=== PATIENT | female | born 1975 | race American Indian/Alaskan Native ===

== ENCOUNTER 2017-06-11 16:38 | Emergency (ER) | payer MEDICAID, MEDICARE ==
[2017-06-11] MEDS ORDERED: Benzonatate 100 MG Cap PO ONE (16:39)
[2017-06-11] MEDS ORDERED: predniSONE 20 MG Tab PO ONE (16:39)
[2017-06-11] MEDS ORDERED: Albuterol/Ipratropium 3.0-0.5 MG/3 ML Neb Soln NEB ONE (18:52)
[2017-06-11] MEDS ORDERED: Albuterol 0.083% 2.5 MG/3 ML Neb Soln NEB ONE (20:35)
[2017-06-11] MEDS ORDERED: methylPREDNISolone Sodium Succinate 125 MG/2 ML SDV IVPUSH ONE (20:35)
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
[2017-06-11 21:07] VITALS: BP 152/83
[2017-06-11 21:29] LABS: CHLORIDE,CL 104 mmol/L (101-111); SODIUM,NA 138 mmol/L (135-145)
[2017-06-11] MEDS ORDERED: Benzonatate 100 MG Cap ONE (21:39)
[2017-06-11] MEDS ORDERED: predniSONE 20 MG Tab ONE (21:40)
== END 2017-06-11 21:45 | disposition home or self-care (01) ==
LOC: DL.ED 16:38
DX: J45.901 Unspecified asthma with (acute) exacerbation (principal); F17.210 Nicotine dependence, cigarettes, uncomplicated; Z98.890 Other specified postprocedural states; Z79.899 Other long term (current) drug therapy; Z88.6 Allergy status to analgesic agent; Z91.030 Bee allergy status
CPT/HCPCS: 36415; 71020; 80053; 83605; 85025; 96374; 99285; A9270; J2930; J7620; 99284

== ENCOUNTER 2017-11-24 13:21 | Day surgery (SDC) | payer MEDICARE ==
[2017-11-24] MEDS ORDERED: Sodium Chloride 0.9% 1,000 ML IV ONE (13:46)
[2017-11-24] MEDS ORDERED: Ondansetron 4 MG/2 ML SDV IV ONE ×4 (13:46→20:34)
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
[2017-11-24 14:34] LABS: ACETAMINOPHEN < 10; ANION GAP 11.3; CHLORIDE,CL 103 mmol/L (101-111); SODIUM,NA 135 mmol/L (135-145)
[2017-11-24] MEDS ORDERED: Iopamidol 612 MG/ML 100 ML Bottle IVPUSH ONE (14:44)
--- NOTE | 2017-11-24 15:34 | CT ---
Clinical history: 42-year-old 254 pound female smoker with mid epigastric pain, fever, chills and mil dly elevated WBC (11,500). Scan technique: Volume acquisition of data from the abdomen and pelvis obtained without oral contrast but during/after intravenous administration 100 cc nonionic Isovue (3 cc/s via injector) while patie nt was lying supine on the Siemens multi slice scanner [facility]. All data archived in the PACS system for storage, reformatting axial/sagittal/coronal planes and s tudy. Interpretation: Abnormal. 1. *Diseased gallbladder i.e large dependent noncalcified intraluminal "stones" filling the lower harper f of the distended gallbladder. 2. Liver normal size and anatomic configuration without sign of discrete intrahepatic mass lesion or abnormal dilatation of the intra/extrahepatic biliary ducts. Pancreas unremarkable. Normal stomach an d spleen. 3. Normal reniform size, axis and configuration. No sign of renal cortical scarring, cortical mass le hilda, nephrolithiasis or obstructive uropathy. Urinary bladder unremarkable. Normal uterus left of mi dline. Solitary large 2 cm cyst right ovary. 4. No other pelvic or abdominal mass lesion and no sign of mesenteric or retroperitoneal lymphadenopa thy. No inflammatory "dirty" peritoneal fat, sign of mechanical bowel obstruction, ascites or free in traperitoneal air. No sign of diverticulitis or appendicitis. 5. Normal heart. Lung bases clear. Normal caliber abdominal aorta.
[2017-11-24] MEDS ORDERED: Glycopyrrolate 0.2 MG/ML 2 ML SDV IV ONE (16:35)
[2017-11-24] MEDS ORDERED: Rocuronium 50 MG/5 ML Vial IV ONE (16:35)
[2017-11-24] MEDS ORDERED: Midazolam 1 MG/ML 2 ML SDV IV ONE (16:35)
[2017-11-24] MEDS ORDERED: Lactated Ringers 1,000 ML IV ONE ×2 (16:35→16:41)
[2017-11-24] MEDS ORDERED: Dexamethasone 4 MG/ML SDV IV ONE (16:35)
[2017-11-24] MEDS ORDERED: Ketorolac 30 MG/ML SDV IVPUSH ONE (16:35)
[2017-11-24] MEDS ORDERED: Bupivacaine 0.5% 30 ML SDV INJECT ONE (16:35)
[2017-11-24] MEDS ORDERED: Succinylcholine 200 MG/10 ML MDV IV ONE (16:35)
[2017-11-24] MEDS ORDERED: Neostigmine Methylsulfate 10 MG/10 ML MDV IV ONE (16:35)
[2017-11-24] MEDS ORDERED: Albuterol 6.7 GM Inhaler INH ONE ×2 (16:35→18:18)
[2017-11-24] MEDS ORDERED: Propofol 200 MG/20 ML SDV IV ONE (16:35)
[2017-11-24] MEDS ORDERED: fentaNYL 100 MCG/2 ML SDV IV ONE (16:35)
[2017-11-24] MEDS ORDERED: ceFAZolin 2 GM in Premix Bag 1 BAG IV ONE (16:41)
--- NOTE | 2017-11-24 17:21 | HP ---
INTRODUCTION: This 42-year-old female presents to the emergency room with significant right upper quadrant abdominal pain and nausea and vomiting. CT scan shows a grossly dilated gallbladder with dependent stones and sludge in the outlet of the gallbladder consistent with a partial blockage. No other abnormalities on CT scan were noted. This patient has been sick all day long and finally after multiple episodes of vomiting, called the ambulance to bring her in. White count is elevated slightly to 11,000, otherwise, electrolyte panel is normal. PAST MEDICAL HISTORY: ALLERGIES: The patient has no allergies. CURRENT MEDICATIONS ARE: Inhalers as needed. FAMILY HISTORY AND SOCIAL HISTORY: The patient is single. She works at the [employer] at [place]. She does not have any children. She said she is trying to quit smoking and only smokes occasionally. She claims she does not use alcohol or other street drugs. REVIEW OF SYSTEMS: Only positive for asthma. PHYSICAL EXAMINATION: HEENT is normal. She has multiple facial scars. NECK: Normal. CHEST: Lungs are clear bilaterally. HEART: Normal sinus rhythm. ABDOMEN: Mildly obese. No evidence of hernias. She is tender in the right upper quadrant, has some guarding to palpation. EXTREMITIES: Normal with no edema. NEUROLOGIC: Intact. LABORATORY: As above with elevated white blood cell count and a CT consistent with gallbladder disease. PLAN: I discussed the risks, benefits, and expected outcomes of a laparoscopic cholecystectomy with this patient. We will proceed with this today at [place]. Would expect an overnight observation with home tomorrow. [facility] /[id number]
[2017-11-24] MEDS ORDERED: Bupivacaine 0.5%/EPINEPHrine 1:200,000 10 ML SDV ONE (18:08)
[2017-11-24] MEDS ORDERED: Bupivacaine 0.5%/EPINEPHrine 1:200,000 10 ML SDV INJECT ONE (18:15)
[2017-11-24] MEDS ORDERED: Sodium Chloride 0.9% 10 ML Syringe FLUSH PRN (18:37)
[2017-11-24] MEDS: Morphine 2 MG/ML Syringe IVPUSH PRN ×2 (20:05→22:56)
[2017-11-24] MEDS ORDERED: Ondansetron 4 MG/2 ML SDV ONE (20:43)
--- NOTE | 2017-11-25 01:19 | OR ---
DATE: 11/24/2017 PREOPERATIVE DIAGNOSIS: Acute cholecystitis. POSTOPERATIVE DIAGNOSES: Acute cholecystitis, hydrops of the gallbladder. PROCEDURE: Laparoscopic cholecystectomy. ANESTHESIA: General. ESTIMATED BLOOD LOSS: Minimum. SPECIMEN: Gallbladder and stones. INDICATION FOR PROCEDURE: This 42-year-old female has significant right upper quadrant abdominal pain and a CT scan that shows largely distended gallbladder with probable impaction of a large stone in the outlet of the gallbladder. She has elevated white blood cell count of 11,000. There is pain to deep palpation in the right upper quadrant. OPERATIVE FINDINGS: Distended gallbladder hydrops. No other abnormalities were noted. PROCEDURE: After adequate preparation, trocars were placed in a standard fashion under direct vision. The abdomen was insufflated. The gallbladder was identified. She had no intraabdominal adhesions. The liver appeared to be normal. The gallbladder was too tense to grasp with a grasper and so an aspiration needle was used and 100 mL of white bile was taken from the gallbladder. This allowed the gallbladder to be elevated up over the liver. She did indeed have a large stone impacting Meenakshi's pouch that blocked the cystic duct. The cystic triangle structures were dissected free, triply clipped and divided. The gallbladder was then taken off the liver bed using blunt, sharp, and Bovie dissection. No abnormalities were noted. Hemostasis was controlled with cautery. The right upper quadrant was irrigated with saline and suctioned clear. The gallbladder was placed within a retrieval bag and brought out through the epigastric trocar site by having to dilate the fascia. This was then reclosed using two [id number] 0 Vicryl sutures. The skin was closed with Monocryl. The patient was taken to recovery room in stable condition. My plan is to observe her overnight and discharge in the morning. [facility] /[id number]
[2017-11-25] MEDS: Morphine 2 MG/ML Syringe IVPUSH PRN (03:07)
[2017-11-25] MEDS: Ondansetron 4 MG/2 ML SDV IV SCH ×2 (03:07→09:09)
[2017-11-25] MEDS: Acetaminophen/oxyCODONE 325-5 MG Tab PO PRN ×2 (06:22→10:10)
--- NOTE | 2017-11-25 07:30 | PCM.SN ---
- Free Text/Narrative Note: POD #1 from laparoscopic cholecytectomy. Somewhat sleepy. VSS Tmax 100.1. Wounds look good, no brusiing. Abdomen soft, lungs clear. Still some nausea. Stable to discharge today. Can FU with PCP at [facility] [place] [facility] needed. Should be off work for 1 week and then can return without restriction. Can resume regular diet and activity. Percocet (20) given as needed for pain.
[2017-11-25 13:27] VITALS: BP 101/61
== END 2017-11-25 11:00 | disposition home or self-care (01) ==
LOC: DL.SDS 13:21 → UNDOADMOB 19:20 → DL.MS 19:20 → UNDODISOB 11-25 11:00 → DL.SDS 11-25 11:00
PROVIDERS: ATTEND Surgery
DX: K80.10 Calculus of gallbladder with chronic cholecystitis without obstruction (principal); J45.909 Unspecified asthma, uncomplicated; F32.9 Major depressive disorder, single episode, unspecified; Z88.8 Allergy status to other drugs, medicaments and biological substances; Z91.030 Bee allergy status; Z79.899 Other long term (current) drug therapy; F17.210 Nicotine dependence, cigarettes, uncomplicated
CPT/HCPCS: 00790; 36415; 47562; 74177; 80053; 80305; 81001; 81025; 82150; 83690; 85025; 87804; 96361; 96374; 99285; A9270; G0480; J0330; J0690; J1100; J1885; J2250; J2270; J2405; J2704; J2710; J3010; J7030; J7050; J7120; Q9967; 88304; 99203; J3490

== ENCOUNTER 2018-03-12 15:33 | Emergency (ER) | payer MEDICARE, OTHER ==
[2018-03-12 15:39] VITALS: BP 143/75
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
== END 2018-03-12 16:18 ==
LOC: DL.ED 15:33
DX: F19.10 Other psychoactive substance abuse, uncomplicated (principal); E66.9 Obesity, unspecified; Z88.8 Allergy status to other drugs, medicaments and biological substances; Z91.030 Bee allergy status; Z79.899 Other long term (current) drug therapy
CPT/HCPCS: 36415; 80305; 99284; G0480; 99283

== ENCOUNTER 2018-03-23 22:56 | Emergency (ER) | payer MEDICARE, OTHER ==
[2018-03-23 23:02] VITALS: BP 160/72
[2018-03-23] MEDS ORDERED: Clindamycin HCl 150 MG Cap PO ONE (23:11)
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
== END 2018-03-23 23:26 | disposition home or self-care (01) ==
LOC: DL.ED 22:56
DX: S00.06XA Insect bite (nonvenomous) of scalp, initial encounter (principal); F17.210 Nicotine dependence, cigarettes, uncomplicated; J45.909 Unspecified asthma, uncomplicated; Z88.6 Allergy status to analgesic agent; Z91.030 Bee allergy status; W57.XXXA Bitten or stung by nonvenomous insect and other nonvenomous arthropods, initial encounter
CPT/HCPCS: 99282; A9270; 99283

== ENCOUNTER 2018-04-25 14:01 | Emergency (ER) | payer MEDICARE, OTHER ==
[2018-04-25 14:13] VITALS: BP 175/75
== END 2018-04-25 15:43 | disposition left against medical advice (07) ==
LOC: DL.ED 14:01
DX: Z53.21 Procedure and treatment not carried out due to patient leaving prior to being seen by health care provider (principal)
CPT/HCPCS: 99284

== ENCOUNTER 2018-05-11 16:06 | Inpatient (IN) | payer MEDICARE, OTHER ==
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
[2018-05-11] MEDS ORDERED: Vancomycin 1.75 GM in Sodium Chloride 0.9% 500 ML IV ONE (17:51)
[2018-05-11 18:04] LABS: ANION GAP 15.1; CHLORIDE,CL 103 mmol/L (101-111); SODIUM,NA 137 mmol/L (135-145)
[2018-05-11] MEDS ORDERED: Iopamidol 612 MG/ML 100 ML Bottle IVPUSH ONE (18:15)
[2018-05-11] MEDS ORDERED: Ondansetron 4 MG/2 ML SDV IV ONE (19:19)
[2018-05-11] MEDS ORDERED: Morphine 2 MG/ML Syringe IVPUSH ONE (19:19)
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
[2018-05-11] MEDS ORDERED: Docusate Sodium 100 MG Cap PO PRN (20:46)
[2018-05-11] MEDS ORDERED: Albuterol/Ipratropium 3.0-0.5 MG/3 ML Neb Soln INH PRN (20:52)
[2018-05-11] MEDS: Acetaminophen 325 MG Tab PO PRN (21:30)
[2018-05-11] MEDS: Piperacillin/Tazobactam 3.375 GM in Sodium Chloride 0.9% 100 ML IV SCH (21:38)
[2018-05-12] MEDS: Piperacillin/Tazobactam 3.375 GM in Sodium Chloride 0.9% 100 ML IV SCH ×4 (03:58→21:13)
[2018-05-12] MEDS: Pantoprazole 40 MG Tab.CR PO SCH (06:05)
[2018-05-12 07:01] LABS: CHLORIDE,CL 107 mmol/L (101-111); SODIUM,NA 139 mmol/L (135-145)
[2018-05-12] MEDS: Mometasone Furoate Powder 220 MCG/Puff 14 Dose Inhaler INH SCH (08:57)
[2018-05-12] MEDS: Enoxaparin 40 MG/0.4 ML Syringe SUBCUT SCH (08:59)
[2018-05-12] MEDS ORDERED: Albuterol 6.7 GM Inhaler INH SCH (09:00)
[2018-05-12] MEDS: Montelukast 10 MG Tab PO SCH (09:01)
[2018-05-12] MEDS: Sertraline 50 MG Tab PO SCH (09:01)
[2018-05-12] MEDS: Acetaminophen 325 MG Tab PO PRN ×2 (09:14→21:25)
[2018-05-12] MEDS ORDERED: Potassium Chloride 10 MEQ Tab.ER PO ONE (11:12)
--- NOTE | 2018-05-12 12:03 | PCM.PN ---
- General Info Date of Service: 05/12/18 Admission Dx/Problem (Free Text): Left hand ( Wrist and lower arm), pain. swelling and warmth with redness ( Cellulitis of Left hand) Subjective Update: she is feeling little better today, still has pain in her left arm, no over night fever or chill, appetite is good, no shortness of breath or cheat pain Functional Status: Reports: Pain Controlled, Tolerating Diet, Ambulating, Urinating - Review of Systems General: Reports: Appetite (good). Denies: Fever, Malaise, Chills HEENT: Denies: Ear Pain, Eye Pain, Headaches, Sinus Congestion, Sore Throat Pulmonary: Denies: Shortness of Breath, Cough, Wheezing Cardiovascular: Denies: Chest Pain, Dyspnea on Exertion, Edema, Lightheadedness Gastrointestinal: Denies: Abdominal Pain, Constipation, Nausea, Vomiting Genitourinary: Denies: Dysuria, Burning, Urgency, Flank Pain Musculoskeletal: Reports: Arm Pain (left), Hand Pain (left), Joint Swelling ( left wrist). Denies: Neck Pain, Shoulder Pain, Leg Pain, Foot Pain Skin: Denies: Cyanosis, Diaphoresis, Bruising, Pruritis, Rash Neurological: Denies: Confusion, Tingling, Tremors Psychiatric: Denies: Confusion, Anxiety - Patient Data Vitals - Most Recent: Last Vital Signs Temp 36.9 C 05/12/18 08:32 Pulse 56 L 05/12/18 08:32 Resp 20 05/12/18 08:32 BP 139/77 05/12/18 08:32 Pulse Ox 99 05/12/18 08:32 Weight - Most Recent: 102.058 kg I&O - Last 24 Hours: Intake & Output 05/11/18 05/12/18 05/12/18 22:59 06:59 14:59 Intake Total 1450 750 Output Total 1000 Balance 450 750 Lab Results Last 24 Hours: Laboratory Results - last 24 hr 05/11/18 05/11/18 05/11/18 Range/Units 17:15 17:15 17:37 WBC 16.6 H (5.0-10.0) 10^3/uL RBC 4.91 (4.2-5.4) 10^6/uL Hgb 10.5 L D (12.0-16.0) g/dL Hct 33.8 L (37.0-47.0) % MCV 68.8 L D (80-100) fL MCH 21.4 L (27.0-34.0) pg MCHC 31.1 L (33.0-35.0) g/dL Plt Count 433 (150-450) 10^3/uL Neut % (Auto) 75.9 H (42.2-75.2) % Lymph % (Auto) 13.2 L (20.5-50.1) % [place] % (Auto) 7.9 (2-8) % Eos % (Auto) 2.8 (1.0-3.0) % Baso % (Auto) 0.2 (0.0-1.0) % Sodium (135-145) mmol/L Potassium (3.6-5.0) mmol/L Chloride (101-111) mmol/L Carbon Dioxide (21.0-31.0) mmol/L Anion Gap BUN (7-18) mg/dL Creatinine (0.6-1.3) mg/dL Est Cr Clr Drug Dosing mL/min Estimated GFR (MDRD) BUN/Creatinine Ratio Glucose (74-105) mg/dL Lactic Acid (0.5-2.2) mmol/L Calcium (8.4-10.2) mg/dl Total Bilirubin (0.2-1.0) mg/dL AST (10-42) IU/L ALT (10-60) IU/L Alkaline Phosphatase (42-121) IU/L Total Protein (6.7-8.2) g/dl Albumin (3.2-5.5) g/dl Globulin Albumin/Globulin Ratio Urine Color Yellow (YELLOW) Urine Appearance Slightly cloudy (CLEAR) Urine pH 6.0 (5.0-9.0) Ur Specific [place] 1.015 (1.005-1.030) Urine Protein Negative (NEGATIVE) Urine Glucose (UA) Negative (NEGATIVE) Urine Ketones Trace H (NEGATIVE) Urine Occult Blood Moderate H (NEGATIVE) Urine Nitrite Negative (NEGATIVE) Urine Bilirubin Negative (NEGATIVE) Urine Urobilinogen 0.2 (0.2-1.0) mg/dL Ur Leukocyte Esterase Negative (NEGATIVE) Urine RBC 0-5 /HPF Urine WBC 0-5 (0-5/HPF) /HPF Ur Epithelial Cells Moderate H /HPF Urine Bacteria Moderate H (0-FEW/HPF) /HPF Urinalysis Comment Urine Opiates Screen Negative (NEGATIVE) Ur Oxycodone Screen Negative (NEGATIVE) Urine Methadone Screen Negative (NEGATIVE) Ur Barbiturates Screen Negative (NEGATIVE) U Tricyclic Antidepress Negative (NEGATIVE) Ur Phencyclidine Scrn Negative (NEGATIVE) Ur Amphetamine Screen Negative (NEGATIVE) U Methamphetamines Scrn Positive H (NEGATIVE) Urine MDMA Screen Negative (NEGATIVE) U Benzodiazepines Scrn Negative (NEGATIVE) Urine Cocaine Screen Negative (NEGATIVE) U Marijuana (THC) Screen Positive H (NEGATIVE) 05/11/18 05/11/18 05/12/18 Range/Units 17:37 17:37 06:23 WBC 11.9 H (5.0-10.0) 10^3/uL RBC 4.74 (4.2-5.4) 10^6/uL Hgb 9.9 L (12.0-16.0) g/dL Hct 32.9 L (37.0-47.0) % MCV 69.4 L (80-100) fL MCH 20.9 L (27.0-34.0) pg MCHC 30.1 L (33.0-35.0) g/dL Plt Count 400 (150-450) 10^3/uL Neut % (Auto) 61.7 (42.2-75.2) % Lymph % (Auto) 21.1 (20.5-50.1) % [place] % (Auto) 9.2 H (2-8) % Eos % (Auto) 7.7 H (1.0-3.0) % Baso % (Auto) 0.3 (0.0-1.0) % Sodium 137 (135-145) mmol/L Potassium 3.1 L (3.6-5.0) mmol/L Chloride 103 (101-111) mmol/L Carbon Dioxide 22.0 (21.0-31.0) mmol/L Anion Gap 15.1 BUN 8 (7-18) mg/dL Creatinine 0.1 L (0.6-1.3) mg/dL Est Cr Clr Drug Dosing 612.43 mL/min Estimated GFR (MDRD) > 60 BUN/Creatinine Ratio 80.00 Glucose 81 (74-105) mg/dL Lactic Acid 0.7 (0.5-2.2) mmol/L Calcium 8.9 (8.4-10.2) mg/dl Total Bilirubin 0.5 (0.2-1.0) mg/dL AST 19 (10-42) IU/L ALT 18 (10-60) IU/L Alkaline Phosphatase 89 (42-121) IU/L Total Protein 7.6 (6.7-8.2) g/dl Albumin 4.0 (3.2-5.5) g/dl Globulin 3.6 Albumin/Globulin Ratio 1.11 Urine Color (YELLOW) Urine Appearance (CLEAR) Urine pH (5.0-9.0) Ur Specific [place] (1.005-1.030) Urine Protein (NEGATIVE) Urine Glucose (UA) (NEGATIVE) Urine Ketones (NEGATIVE) Urine Occult Blood (NEGATIVE) Urine Nitrite (NEGATIVE) Urine Bilirubin (NEGATIVE) Urine Urobilinogen (0.2-1.0) mg/dL Ur Leukocyte Esterase (NEGATIVE) Urine RBC /HPF Urine WBC (0-5/HPF) /HPF Ur Epithelial Cells /HPF Urine Bacteria (0-FEW/HPF) /HPF Urinalysis Comment Urine Opiates Screen (NEGATIVE) Ur Oxycodone Screen (NEGATIVE) Urine Methadone Screen (NEGATIVE) Ur Barbiturates Screen (NEGATIVE) U Tricyclic Antidepress (NEGATIVE) Ur Phencyclidine Scrn (NEGATIVE) Ur Amphetamine Screen (NEGATIVE) U Methamphetamines Scrn (NEGATIVE) Urine MDMA Screen (NEGATIVE) U Benzodiazepines Scrn (NEGATIVE) Urine Cocaine Screen (NEGATIVE) U Marijuana (THC) Screen (NEGATIVE) 05/12/18 Range/Units 06:23 WBC (5.0-10.0) 10^3/uL RBC (4.2-5.4) 10^6/uL Hgb (12.0-16.0) g/dL Hct (37.0-47.0) % MCV (80-100) fL MCH (27.0-34.0) pg MCHC (33.0-35.0) g/dL Plt Count (150-450) 10^3/uL Neut % (Auto) (42.2-75.2) % Lymph % (Auto) (20.5-50.1) % [place] % (Auto) (2-8) % Eos % (Auto) (1.0-3.0) % Baso % (Auto) (0.0-1.0) % Sodium 139 (135-145) mmol/L Potassium 3.0 L (3.6-5.0) mmol/L Chloride 107 (101-111) mmol/L Carbon Dioxide 24.0 (21.0-31.0) mmol/L Anion Gap 11.0 BUN 7 (7-18) mg/dL Creatinine 0.5 L (0.6-1.3) mg/dL Est Cr Clr Drug Dosing 122.49 mL/min Estimated GFR (MDRD) > 60 BUN/Creatinine Ratio Glucose 103 (74-105) mg/dL Lactic Acid (0.5-2.2) mmol/L Calcium 8.3 L (8.4-10.2) mg/dl Total Bilirubin (0.2-1.0) mg/dL AST (10-42) IU/L ALT (10-60) IU/L Alkaline Phosphatase (42-121) IU/L Total Protein (6.7-8.2) g/dl Albumin (3.2-5.5) g/dl Globulin Albumin/Globulin Ratio Urine Color (YELLOW) Urine Appearance (CLEAR) Urine pH (5.0-9.0) Ur Specific [place] (1.005-1.030) Urine Protein (NEGATIVE) Urine Glucose (UA) (NEGATIVE) Urine Ketones (NEGATIVE) Urine Occult Blood (NEGATIVE) Urine Nitrite (NEGATIVE) Urine Bilirubin (NEGATIVE) Urine Urobilinogen (0.2-1.0) mg/dL Ur Leukocyte Esterase (NEGATIVE) Urine RBC /HPF Urine WBC (0-5/HPF) /HPF Ur Epithelial Cells /HPF Urine Bacteria (0-FEW/HPF) /HPF Urinalysis Comment Urine Opiates Screen (NEGATIVE) Ur Oxycodone Screen (NEGATIVE) Urine Methadone Screen (NEGATIVE) Ur Barbiturates Screen (NEGATIVE) U Tricyclic Antidepress (NEGATIVE) Ur Phencyclidine Scrn (NEGATIVE) Ur Amphetamine Screen (NEGATIVE) U Methamphetamines Scrn (NEGATIVE) Urine MDMA Screen (NEGATIVE) U Benzodiazepines Scrn (NEGATIVE) Urine Cocaine Screen (NEGATIVE) U Marijuana (THC) Screen (NEGATIVE) Med Orders - Current: Current Medications Acetaminophen (Tylenol) 650 mg PO Q4H PRN PRN Reason: Pain (mild 1-3 )/fever Last Admin: 05/12/18 09:14 Dose: 650 mg Albuterol (Proventil Hfa) 0 gm INH DAILY [facility] Last Admin: 05/12/18 09:05 Dose: Not Given Albuterol/Ipratropium (Duoneb 3.0-0.5 Mg/3 Ml) 3 ml INH Q4HR PRN PRN Reason: Dyspnea Docusate Sodium (Colace) 100 mg PO DAILY PRN PRN Reason: Constipation Enoxaparin Sodium (Lovenox) 40 mg SUBCUT DAILY [facility] Last Admin: 05/12/18 08:59 Dose: 40 mg Piperacillin Sod/Tazobactam (Sod 3.375 gm/ Sodium Chloride) 100 mls @ 200 mls/ hr IV Q6H [facility] Last Infusion: 05/12/18 10:35 Dose: Infused Vancomycin HCl 1 gm/ Sodium (Chloride) 250 mls @ 166.667 mls/hr IV Q8H [facility] Last Admin: 05/12/18 10:29 Dose: 166.667 mls/hr Mometasone Furoate (Asmanex 220 Mcg) 1 puff INH DAILY [facility] Last Admin: 05/12/18 08:57 Dose: 1 inhalation Montelukast Sodium (Singulair) 10 mg PO DAILY [facility] Last Admin: 05/12/18 09:01 Dose: 10 mg Pantoprazole Sodium (Protonix) 40 mg PO ACBREAKFAST [facility] Last Admin: 05/12/18 06:05 Dose: Not Given Sertraline HCl (Zoloft) 100 mg PO DAILY [facility] Last Admin: 05/12/18 09:01 Dose: 100 mg Vancomycin HCl (Pharmacy To Dose - Vancomycin) 1 dose .XX ASDIRECTED [facility] Discontinued Medications Vancomycin HCl 1.75 gm/ Sodium (Chloride) 500 mls @ 334 mls/hr IV ONETIME ONE Stop: 05/11/18 19:20 Last Admin: 05/11/18 18:15 Dose: 334 mls/hr Iopamidol (Isovue-300 (61%)) 100 ml IVPUSH ONETIME ONE Stop: 05/11/18 18:16 Last Admin: 05/11/18 18:23 Dose: 100 ml Morphine Sulfate (Morphine) 2 mg IVPUSH ONETIME ONE Stop: 05/11/18 19:20 Last Admin: 05/11/18 19:33 Dose: 2 mg Ondansetron HCl (Zofran) 4 mg IV ONETIME ONE Stop: 08/31/18 19:20 Last Admin: 05/11/18 19:31 Dose: 4 mg Potassium Chloride (Klor-Con 10) 40 meq PO ONETIME ONE Stop: 05/12/18 11:13 - Exam Quality Assessment: DVT Prophylaxis. No: Supplemental Oxygen, Urine Catheter General: Alert, Oriented, Cooperative, No Acute Distress HEENT: Pupils Equal, Pupils Reactive, Mucous Membr. Moist/[place] Neck: Supple, No JVD, No Thyromegaly Lungs: Clear to Auscultation, Normal Respiratory Effort. No: Crackles, Wheezing Cardiovascular: Regular Rate, Regular Rhythm, No Murmurs GI/Abdominal Exam: Normal Bowel Sounds, Soft, Non-Tender. No: Guarding, Rebound (Female) Exam: Deferred Back Exam: Normal Inspection, Full Range of Motion Extremities: Normal Inspection, Normal Range of Motion, No Pedal Edema Skin: Warm, Dry, Intact Neurological: No New Focal Deficit Psy/Mental Status: Alert, Normal Affect, Normal Mood - Problem List & Annotations (1) Asthma SNOMED Code(s): 578493434 Code(s): J45.909 - UNSPECIFIED ASTHMA, UNCOMPLICATED Status: Acute Current Visit: Yes (2) Cellulitis of hand, left SNOMED Code(s): 69082950 Code(s): L03.114 - CELLULITIS OF LEFT UPPER LIMB Status: Acute Current Visit: No - Problem List Review Problem List Initiated/Reviewed/Updated: Yes - My Orders Last 24 Hours: My Active Orders 05/11/18 20:46 Patient Status [ADT] Routine Ambulate [RC] ASDIRECTED Up With Assistance [RC] ASDIRECTED Up to Chair [RC] ASDIRECTED Vital Signs [RC] 04,08,12,16,20,00 Acetaminophen [Tylenol] 650 mg PO Q4H PRN Docusate Sodium [Colace] 100 mg PO DAILY PRN DVT/VTE Prophylaxis Reflex [OM.PC] Routine Resuscitation Status Routine 05/11/18 20:48 Oxygen Therapy [RC] PRN Pulse Oximetry [RC] PRN 05/11/18 20:49 Antiembolic Devices [RC] 08,20 VTE/DVT Education [RC] PER UNIT ROUTINE Antiembolic Hose [OM.PC] Per Unit Routine 05/11/18 20:52 Albuterol/Ipratropium [DuoNeb 3.0-0.5 MG/3 ML] 3 ml INH Q4HR PRN 05/11/18 21:00 Piperacillin/Tazobactam [Zosyn] 3.375 gm Sodium Chloride 0.9% [Normal Saline] 100 ml IV Q6H Vancomycin Pharmacy to Dose [Pharmacy to Dose - Vancomycin] 1 dose .XX ASDIRECTED 05/11/18 Dinner Regular Diet [DIET] 05/12/18 02:00 Vancomycin 1 gm Sodium Chloride 0.9% [Normal Saline] 250 ml IV Q8H 05/12/18 06:00 Pantoprazole [ProTONIX] 40 mg PO ACBREAKFAST 05/12/18 09:00 Albuterol [Proventil HFA] 0 gm INH DAILY Enoxaparin [Lovenox] 40 mg SUBCUT DAILY Mometasone Furoate [Asmanex 220 MCG] 1 puff INH DAILY Montelukast [Singulair] 10 mg PO DAILY Sertraline [Zoloft] 100 mg PO DAILY - Plan Plan:: This is a 42 y/O Moderately obese Female admitted with Left upper arm Cellulitis Impression and Plan: 1. Left Upper extremity Cellulitis: - The pt had Injected Methamphetamine into her left hand and now came with pain and swelling with erythema - B/C X 2 drawn ( No growth yest) -will continue IV Zosyn and Vancomycin -Pharmacy to check Vancomycin level and dose accordingly --Continue Tylenol as needed for pain and low grade Fever -will give Tramadol PRN for breakthrough pain 2. History of Asthma: Diagnosed about 6 years ago and will continue home medication ( albuterol and Duonebs PRN) 3. Hypokalemia: Potassium is low and will give potassium chloride 40 meq X 1 dose , will recheck potassium in AM 4. DVT prophlexis: Enoxapain 5. GI prophylaxis: Protonix 5. Code Status: Full code
[2018-05-12] MEDS: traMADol 50 MG Tab PO PRN (12:47)
[2018-05-12] MEDS ORDERED: Albuterol 6.7 GM Inhaler INH PRN (13:34)
[2018-05-13] MEDS: Piperacillin/Tazobactam 3.375 GM in Sodium Chloride 0.9% 100 ML IV SCH ×4 (03:49→21:41)
[2018-05-13] MEDS: Pantoprazole 40 MG Tab.CR PO SCH (06:01)
[2018-05-13] MEDS: Enoxaparin 40 MG/0.4 ML Syringe SUBCUT SCH (09:00)
[2018-05-13] MEDS ORDERED: Potassium Chloride 10 MEQ Tab.ER PO ONE (09:14)
[2018-05-13] MEDS: Sertraline 50 MG Tab PO SCH (09:57)
[2018-05-13] MEDS: Montelukast 10 MG Tab PO SCH (09:57)
[2018-05-13] MEDS: Mometasone Furoate Powder 220 MCG/Puff 14 Dose Inhaler INH SCH (10:02)
[2018-05-13] MEDS: Acetaminophen 325 MG Tab PO PRN ×2 (10:03→20:04)
[2018-05-13] MEDS: traMADol 50 MG Tab PO PRN ×2 (10:04→22:13)
--- NOTE | 2018-05-13 10:14 | PCM.PN ---
- General Info Date of Service: 05/13/18 Admission Dx/Problem (Free Text): Admitted with: Left hand ( Wrist and lower arm), pain. swelling and warmth with redness ( Cellulitis of Left hand) Subjective Update: she is feeling little better today, still has pain in her left arm, no over night fever or chill, appetite is good, no shortness of breath or chest pain, slept well, swelling of the hand is improving Functional Status: Reports: Pain Controlled, Tolerating Diet, Ambulating, Urinating - Review of Systems General: Reports: Appetite (Good). Denies: Fever, Weakness, Chills HEENT: Denies: Eye Pain, Headaches, Sinus Congestion, Sore Throat Pulmonary: Denies: Shortness of Breath, Pleuritic Chest Pain, Cough, Sputum, Wheezing Cardiovascular: Denies: Chest Pain, Dyspnea on Exertion, Lightheadedness Gastrointestinal: Denies: Abdominal Pain, Diarrhea, Difficulty Swallowing, Nausea, Vomiting Genitourinary: Denies: Dysuria, Burning, Urgency, Flank Pain Musculoskeletal: Reports: Hand Pain (left), Other (Left wrist and lower arm pain with swelling). Denies: Neck Pain, Shoulder Pain Skin: Denies: Jaundice, Bruising, Pruritis, Rash Neurological: Denies: Confusion, Tingling, Tremors Psychiatric: Denies: Confusion, Anxiety - Patient Data Vitals - Most Recent: Last Vital Signs Temp 37.1 C 05/13/18 08:00 Pulse 62 05/13/18 08:00 Resp 18 05/13/18 08:00 BP 126/62 05/13/18 08:00 Pulse Ox 99 05/13/18 08:00 Weight - Most Recent: 102.058 kg I&O - Last 24 Hours: Intake & Output 05/12/18 05/13/18 05/13/18 22:59 06:59 14:59 Intake Total 940 850 Balance 940 850 Lab Results Last 24 Hours: Laboratory Results - last 24 hr 05/13/18 Range/Units 06:36 Potassium 3.5 L (3.6-5.0) mmol/L Jed Results Last 24 Hours: Microbiology 05/11/18 17:38 Aerobic Blood Culture - Preliminary Blood - Venous - Lab Draw Anaerobic Blood Culture - Preliminary NO GROWTH AFTER 1 DAY 05/11/18 17:37 Aerobic Blood Culture - Preliminary Blood - Venous NO GROWTH AFTER 1 DAY Anaerobic Blood Culture - Preliminary NO GROWTH AFTER 1 DAY Med Orders - Current: Current Medications Acetaminophen (Tylenol) 650 mg PO Q4H PRN PRN Reason: Pain (mild 1-3 )/fever Last Admin: 05/12/18 21:25 Dose: 650 mg Albuterol (Proventil Hfa) 0 gm INH DAILY PRN PRN Reason: Shortness of Breath Albuterol/Ipratropium (Duoneb 3.0-0.5 Mg/3 Ml) 3 ml INH Q4HR PRN PRN Reason: Dyspnea Docusate Sodium (Colace) 100 mg PO DAILY PRN PRN Reason: Constipation Enoxaparin Sodium (Lovenox) 40 mg SUBCUT DAILY [facility] Last Admin: 05/12/18 08:59 Dose: 40 mg Piperacillin Sod/Tazobactam (Sod 3.375 gm/ Sodium Chloride) 100 mls @ 200 mls/ hr IV Q6H [facility] Last Admin: 05/13/18 09:49 Dose: 2 mls/hr Vancomycin HCl 1 gm/ Sodium (Chloride) 250 mls @ 166.667 mls/hr IV Q8H [facility] Last Admin: 05/13/18 09:52 Dose: 166.667 mls/hr Mometasone Furoate (Asmanex 220 Mcg) 1 puff INH DAILY [facility] Last Admin: 05/12/18 08:57 Dose: 1 inhalation Montelukast Sodium (Singulair) 10 mg PO DAILY [facility] Last Admin: 05/13/18 09:57 Dose: 10 mg Pantoprazole Sodium (Protonix) 40 mg PO ACBREAKFAST [facility] Last Admin: 05/13/18 06:01 Dose: 40 mg Sertraline HCl (Zoloft) 100 mg PO DAILY [facility] Last Admin: 05/13/18 09:57 Dose: 100 mg Tramadol HCl (Ultram) 50 mg PO Q12H PRN PRN Reason: Pain Last Admin: 05/12/18 12:47 Dose: 50 mg Vancomycin HCl (Pharmacy To Dose - Vancomycin) 1 dose .XX ASDIRECTED [facility] Discontinued Medications Albuterol (Proventil Hfa) 0 gm INH DAILY [facility] Last Admin: 05/12/18 09:05 Dose: Not Given Vancomycin HCl 1.75 gm/ Sodium (Chloride) 500 mls @ 334 mls/hr IV ONETIME ONE Stop: 05/11/18 19:20 Last Admin: 05/11/18 18:15 Dose: 334 mls/hr Iopamidol (Isovue-300 (61%)) 100 ml IVPUSH ONETIME ONE Stop: 05/11/18 18:16 Last Admin: 05/11/18 18:23 Dose: 100 ml Morphine Sulfate (Morphine) 2 mg IVPUSH ONETIME ONE Stop: 05/11/18 19:20 Last Admin: 05/11/18 19:33 Dose: 2 mg Ondansetron HCl (Zofran) 4 mg IV ONETIME ONE Stop: 05/11/18 19:20 Last Admin: 05/11/18 19:31 Dose: 4 mg Potassium Chloride (Klor-Con 10) 40 meq PO ONETIME ONE Stop: 05/12/18 11:13 Last Admin: 05/12/18 12:46 Dose: 40 meq Potassium Chloride (Klor-Con 10) 20 meq PO ONETIME ONE Stop: 05/13/18 09:15 - Exam Quality Assessment: DVT Prophylaxis. No: Supplemental Oxygen, Urine Catheter, Skin Breakdown General: Alert, Oriented, Cooperative, No Acute Distress HEENT: Pupils Equal, EOMI, Mucous Membr. Moist/[place] Neck: Supple, No JVD, No Thyromegaly Lungs: Clear to Auscultation, Normal Respiratory Effort. No: Crackles, Wheezing Cardiovascular: Regular Rate, Regular Rhythm, No Murmurs GI/Abdominal Exam: Normal Bowel Sounds, Soft, Non-Tender. No: Guarding, Rebound (Female) Exam: Deferred Back Exam: Normal Inspection, Full Range of Motion Extremities: Normal Inspection, No Pedal Edema, Other (left upper extremity has limited range of motion because of swelling and Pain) Skin: Warm, Dry, Intact Neurological: No New Focal Deficit Psy/Mental Status: Alert, Normal Affect, Normal Mood - Problem List & Annotations (1) Asthma SNOMED Code(s): 226693292 Code(s): J45.909 - UNSPECIFIED ASTHMA, UNCOMPLICATED Status: Acute Current Visit: Yes (2) Cellulitis of hand, left SNOMED Code(s): 71279965 Code(s): L03.114 - CELLULITIS OF LEFT UPPER LIMB Status: Acute Current Visit: No - Problem List Review Problem List Initiated/Reviewed/Updated: Yes - My Orders Last 24 Hours: My Active Orders 05/12/18 12:05 traMADol [Ultram] 50 mg PO Q12H PRN 05/12/18 13:34 Albuterol [Proventil HFA] 0 gm INH DAILY PRN - Plan Plan:: This is a 42 y/O Moderately obese Female admitted with Left upper arm Cellulitis Impression and Plan: 1. Left Upper extremity Cellulitis: - The pt had Injected Methamphetamine into her left hand and came with pain and swelling with erythema - B/C X 2 drawn ( aerobic showed- gram positive cocci in clusters) -will continue IV Zosyn and Vancomycin -Pharmacy to check Vancomycin level and dose accordingly --Continue Tylenol as needed for pain and low grade Fever -will continue Tramadol PRN for breakthrough pain 2. History of Asthma: Diagnosed about 6 years ago and will continue home medication ( albuterol and Duonebs PRN) 3. Hypokalemia: Potassium is low and will give potassium chloride 20 meq X 1 dose , will recheck potassium in AM 4. DVT prophlexis: Enoxapain 5. GI prophylaxis: Protonix 5. Code Status: Full code
[2018-05-13] MEDS: Sodium Chloride 0.9% 10 ML Syringe FLUSH PRN (18:17)
[2018-05-14] MEDS: Piperacillin/Tazobactam 3.375 GM in Sodium Chloride 0.9% 100 ML IV SCH ×4 (03:46→20:59)
[2018-05-14] MEDS: Pantoprazole 40 MG Tab.CR PO SCH (06:00)
[2018-05-14] MEDS: Mometasone Furoate Powder 220 MCG/Puff 14 Dose Inhaler INH SCH (09:10)
[2018-05-14] MEDS: Sertraline 50 MG Tab PO SCH (09:15)
[2018-05-14] MEDS: Montelukast 10 MG Tab PO SCH (09:15)
[2018-05-14] MEDS: Enoxaparin 40 MG/0.4 ML Syringe SUBCUT SCH (09:15)
[2018-05-14] MEDS ORDERED: Potassium Chloride 10 MEQ Tab.ER PO ONE ×2 (09:43→14:00)
--- NOTE | 2018-05-14 10:50 | PCM.PN ---
- General Info Date of Service: 05/14/18 Admission Dx/Problem (Free Text): Admitted with: Left hand ( Wrist and lower arm), pain. swelling and warmth with redness ( Cellulitis of Left hand Secondary to use of IV Methamphetamine) Subjective Update: she is feeling better today, still has pain in her left arm, no over night fever or chill, appetite is good, no shortness of breath or chest pain, slept well, swelling of the hand is improving, culture sensitivity is not available yet Functional Status: Reports: Pain Controlled, Tolerating Diet, Ambulating, Urinating - Review of Systems General: Reports: Appetite (good). Denies: Fever, Weakness, Chills HEENT: Denies: Headaches, Sinus Congestion, Sore Throat, Visual Changes Pulmonary: Denies: Shortness of Breath, Pleuritic Chest Pain, Cough, Sputum, Wheezing Cardiovascular: Denies: Chest Pain, Palpitations, Dyspnea on Exertion, Lightheadedness Gastrointestinal: Denies: Abdominal Pain, Difficulty Swallowing, Nausea, Vomiting Genitourinary: Denies: Dysuria, Frequency, Burning, Flank Pain Musculoskeletal: Reports: Hand Pain (left hand), Joint Swelling (wrist and left lower arm). Denies: Neck Pain, Shoulder Pain, Back Pain Skin: Denies: Cyanosis, Jaundice, Bruising, Pruritis, Rash Neurological: Denies: Confusion, Numbness, Tingling, Tremors Psychiatric: Denies: Confusion, Anxiety - Patient Data Vitals - Most Recent: Last Vital Signs Temp 36.8 C 05/14/18 07:57 Pulse 61 05/14/18 07:57 Resp 20 05/14/18 07:57 BP 134/76 05/14/18 07:57 Pulse Ox 100 05/14/18 07:57 Weight - Most Recent: 102.058 kg I&O - Last 24 Hours: Intake & Output 05/13/18 05/14/18 05/14/18 22:59 06:59 14:59 Intake Total 575 850 Balance 575 850 Lab Results Last 24 Hours: Laboratory Results - last 24 hr 05/13/18 05/14/18 Range/Units 17:22 05:57 Potassium 3.5 L (3.6-5.0) mmol/L Vancomycin Trough 12.8 (10-15) ug/ml Jed Results Last 24 Hours: Microbiology 05/11/18 17:38 Aerobic Blood Culture - Preliminary Blood - Venous - Lab Draw Anaerobic Blood Culture - Preliminary NO GROWTH AFTER 2 DAYS 05/11/18 17:37 Aerobic Blood Culture - Preliminary Blood - Venous NO GROWTH AFTER 2 DAYS Anaerobic Blood Culture - Preliminary NO GROWTH AFTER 2 DAYS Med Orders - Current: Current Medications Acetaminophen (Tylenol) 650 mg PO Q4H PRN PRN Reason: Pain (mild 1-3 )/fever Last Admin: 05/13/18 20:04 Dose: 650 mg Albuterol (Proventil Hfa) 0 gm INH DAILY PRN PRN Reason: Shortness of Breath Albuterol/Ipratropium (Duoneb 3.0-0.5 Mg/3 Ml) 3 ml INH Q4HR PRN PRN Reason: Dyspnea Docusate Sodium (Colace) 100 mg PO DAILY PRN PRN Reason: Constipation Enoxaparin Sodium (Lovenox) 40 mg SUBCUT DAILY [facility] Last Admin: 05/14/18 09:15 Dose: 40 mg Piperacillin Sod/Tazobactam (Sod 3.375 gm/ Sodium Chloride) 100 mls @ 200 mls/ hr IV Q6H [facility] Last Admin: 05/14/18 09:10 Dose: 200 mls/hr Vancomycin HCl 1 gm/ Sodium (Chloride) 250 mls @ 166.667 mls/hr IV Q8H [facility] Last Admin: 05/14/18 09:19 Dose: 166.667 mls/hr Mometasone Furoate (Asmanex 220 Mcg) 1 puff INH DAILY [facility] Last Admin: 05/14/18 09:10 Dose: 1 inhalation Montelukast Sodium (Singulair) 10 mg PO DAILY [facility] Last Admin: 05/14/18 09:15 Dose: 10 mg Pantoprazole Sodium (Protonix) 40 mg PO ACBREAKFAST [facility] Last Admin: 05/14/18 06:00 Dose: 40 mg Potassium Chloride (Klor-Con 10) 10 meq PO ONETIME ONE Stop: 05/14/18 14:01 Sertraline HCl (Zoloft) 100 mg PO DAILY [facility] Last Admin: 05/14/18 09:15 Dose: 100 mg Sodium Chloride (Saline Flush) 10 ml FLUSH ASDIRECTED PRN PRN Reason: Keep Vein Open Last Admin: 05/13/18 18:17 Dose: 10 ml Tramadol HCl (Ultram) 50 mg PO Q12H PRN PRN Reason: Pain Last Admin: 05/13/18 22:13 Dose: 50 mg Vancomycin HCl (Pharmacy To Dose - Vancomycin) 1 dose .XX ASDIRECTED [facility] Discontinued Medications Albuterol (Proventil Hfa) 0 gm INH DAILY [facility] Last Admin: 05/12/18 09:05 Dose: Not Given Vancomycin HCl 1.75 gm/ Sodium (Chloride) 500 mls @ 334 mls/hr IV ONETIME ONE Stop: 05/11/18 19:20 Last Admin: 05/11/18 18:15 Dose: 334 mls/hr Iopamidol (Isovue-300 (61%)) 100 ml IVPUSH ONETIME ONE Stop: 05/11/18 18:16 Last Admin: 05/11/18 18:23 Dose: 100 ml Morphine Sulfate (Morphine) 2 mg IVPUSH ONETIME ONE Stop: 05/11/18 19:20 Last Admin: 05/11/18 19:33 Dose: 2 mg Ondansetron HCl (Zofran) 4 mg IV ONETIME ONE Stop: 05/11/18 19:20 Last Admin: 05/11/18 19:31 Dose: 4 mg Potassium Chloride (Klor-Con 10) 40 meq PO ONETIME ONE Stop: 05/12/18 11:13 Last Admin: 05/12/18 12:46 Dose: 40 meq Potassium Chloride (Klor-Con 10) 20 meq PO ONETIME ONE Stop: 05/13/18 09:15 Last Admin: 05/13/18 10:03 Dose: 20 meq Potassium Chloride (Klor-Con 10) 20 meq PO ONETIME ONE Stop: 05/14/18 09:44 - Exam Quality Assessment: DVT Prophylaxis. No: Supplemental Oxygen, Urine Catheter General: Alert, Oriented, Cooperative, No Acute Distress HEENT: Pupils Equal, EOMI, Mucous Membr. Moist/[employer] Neck: Supple, No JVD, No Thyromegaly. No: Lymphadenopathy Lungs: Clear to Auscultation, Normal Respiratory Effort. No: Crackles, Wheezing GI/Abdominal Exam: Normal Bowel Sounds, Soft, Non-Tender, No Organomegaly. No: Guarding, Rebound (Female) Exam: Deferred Back Exam: Normal Inspection, Full Range of Motion Extremities: Normal Inspection, No Pedal Edema Skin: Warm, Dry, Intact Neurological: No New Focal Deficit Psy/Mental Status: Alert, Normal Affect, Normal Mood - Problem List & Annotations (1) Asthma SNOMED Code(s): 663727540 Code(s): J45.909 - UNSPECIFIED ASTHMA, UNCOMPLICATED Status: Acute Current Visit: Yes (2) Cellulitis of hand, left SNOMED Code(s): 80706036 Code(s): L03.114 - CELLULITIS OF LEFT UPPER LIMB Status: Acute Current Visit: No - Problem List Review Problem List Initiated/Reviewed/Updated: Yes - My Orders Last 24 Hours: My Active Orders 05/13/18 13:57 Sodium Chloride 0.9% [Saline Flush] 10 ml FLUSH ASDIRECTED PRN Saline Lock Insert [OM.PC] Routine 05/14/18 14:00 Potassium Chloride [Klor-Con 10] 10 meq PO ONETIME ONE 05/15/18 06:00 POTASSIUM,K [CHEM] Routine - Plan Plan:: This is a 42 y/O Moderately obese Female admitted with Left upper arm Cellulitis secondary to use of IV drug Impression and Plan: 1. Left Upper extremity Cellulitis: - The pt had Injected Methamphetamine into her left hand and came with pain and swelling with erythema - B/C X 2 drawn ( aerobic showed- gram positive cocci in clusters- sensitivity still no available) -will continue IV Zosyn and Vancomycin -Pharmacy to check Vancomycin level and dose accordingly --Continue Tylenol as needed for pain and low grade Fever -will continue Tramadol PRN for breakthrough pain 2. History of Asthma: Diagnosed about 6 years ago and will continue home medication ( albuterol and Duonebs PRN) 3. Hypokalemia: Potassium is low and will give potassium chloride 30 meq X 1 dose , will recheck potassium in AM 4. DVT prophlexis: Enoxapain 5. GI prophylaxis: Protonix 6. Disposition: Possibly will be able to go home tomorrow ( waiting for sensitivity, Likely MSSA) 7. Code Status: Full code
[2018-05-14] MEDS: Sodium Chloride 0.9% 10 ML Syringe FLUSH PRN ×4 (11:42→18:04)
[2018-05-14] MEDS: Acetaminophen 325 MG Tab PO PRN ×2 (11:51→19:59)
[2018-05-14] MEDS: traMADol 50 MG Tab PO PRN (11:52)
[2018-05-15] MEDS: Piperacillin/Tazobactam 3.375 GM in Sodium Chloride 0.9% 100 ML IV SCH ×2 (03:34→08:49)
[2018-05-15] MEDS: Pantoprazole 40 MG Tab.CR PO SCH (05:51)
[2018-05-15] MEDS: Sertraline 50 MG Tab PO SCH (08:48)
[2018-05-15] MEDS: Acetaminophen 325 MG Tab PO PRN (08:48)
[2018-05-15] MEDS: Montelukast 10 MG Tab PO SCH (08:48)
[2018-05-15] MEDS: Mometasone Furoate Powder 220 MCG/Puff 14 Dose Inhaler INH SCH (08:49)
[2018-05-15] MEDS: Enoxaparin 40 MG/0.4 ML Syringe SUBCUT SCH (08:49)
[2018-05-15] MEDS: Sodium Chloride 0.9% 10 ML Syringe FLUSH PRN (08:51)
--- NOTE | 2018-05-15 09:48 | PCM.DCSUM1 ---
Discharge Summary - Hospital Course Free Text/Narrative:: This is a 42 y/O Moderately obese Female admitted with Left upper arm Cellulitis secondary to use of IV drug Impression and Plan: 1. Left Upper extremity Cellulitis: - The pt had Injected Methamphetamine into her left hand and came with pain and swelling with erythema - B/C X 2 drawn ( 1/2 STaph Hominis) - likley contaminant but with IV Drug use hav eto r/o persistent bacteremia repeat BC on 05/15 rec. repeat BC after Abx tx. -treated with IV Zosyn and Vancomycin finish 14 days Levofloxacin 2. History of Asthma: Diagnosed about 6 years ago and will continue home medication 3. Hypokalemia: was replaced Diagnosis: Stroke: No - Discharge Data Discharge Date: 05/15/18 Discharge Disposition: Home, Self-Care 01 Condition: Fair - Patient Instructions Diet: Heart Healthy Diet Activity: As Tolerated - Discharge Plan *PRESCRIPTION DRUG MONITORING PROGRAM REVIEWED*: Not Applicable *COPY OF PRESCRIPTION DRUG MONITORING REPORT IN PATIENT LETTY: Not Applicable Prescriptions/Med Rec: Levofloxacin 750 mg PO DAILY #14 tablet Home Medications: Home Meds Albuterol [Ventolin HFA] 1 puff INH DAILY 03/16/14 [History] Ipratropium/Albuterol Sulfate [Duoneb 0.5 mg-3 mg/3 ml Soln] 3 ml INH Q4HR PRN 03/16/14 [History] Mometasone Furoate [Asmanex] 220 mcg ORAL.INH DAILY 07/05/16 [History] Montelukast [Singulair] 10 mg PO DAILY 07/05/16 [History] Sertraline HCl 100 mg PO DAILY 06/11/17 [History] Levofloxacin 750 mg PO DAILY #14 tablet 05/15/18 [Rx] Patient Handouts: Cellulitis, Adult, [id number] Referrals: PCP,None [Primary Care Provider] - (Dr Olsen in 3-4 days) - Discharge Summary/Plan Comment DC Time >30 min.: No - General Info Date of Service: 05/15/18 Subjective Update: she is feeling well today, still has pain in her left hand but redness resolved , swelling better, no over night fever Functional Status: Reports: Pain Controlled - Review of Systems General: Denies: Fever Pulmonary: Denies: Shortness of Breath Cardiovascular: Denies: Chest Pain Gastrointestinal: Denies: Abdominal Pain Skin: Denies: Rash - Patient Data Vitals - Most Recent: Last Vital Signs Temp 36.8 C 05/15/18 08:05 Pulse 72 05/15/18 08:05 Resp 20 05/15/18 08:05 BP 145/71 H 05/15/18 09:45 Pulse Ox 100 05/15/18 08:05 Weight - Most Recent: 102.058 kg I&O - Last 24 hours: Intake & Output 05/14/18 05/15/18 05/15/18 22:59 06:59 14:59 Intake Total 582 111 Balance 582 111 Lab Results - Last 24 hrs: Laboratory Results - last 24 hr 05/15/18 Range/Units 06:18 Potassium 3.6 (3.6-5.0) mmol/L [facility] Results - Last 24 hrs: Microbiology 05/11/18 17:38 Aerobic Blood Culture - Final Blood - Venous - Lab Draw Staph Hominis Ss Hominis Anaerobic Blood Culture - Preliminary NO GROWTH AFTER 3 DAYS 05/11/18 17:37 Aerobic Blood Culture - Preliminary Blood - Venous NO GROWTH AFTER 3 DAYS Anaerobic Blood Culture - Preliminary NO GROWTH AFTER 3 DAYS Med Orders - Current: Current Medications Acetaminophen (Tylenol) 650 mg PO Q4H PRN PRN Reason: Pain (mild 1-3 )/fever Last Admin: 05/15/18 08:48 Dose: 650 mg Albuterol (Proventil Hfa) 0 gm INH DAILY PRN PRN Reason: Shortness of Breath Albuterol/Ipratropium (Duoneb 3.0-0.5 Mg/3 Ml) 3 ml INH Q4HR PRN PRN Reason: Dyspnea Docusate Sodium (Colace) 100 mg PO DAILY PRN PRN Reason: Constipation Enoxaparin Sodium (Lovenox) 40 mg SUBCUT DAILY [facility] Last Admin: 05/15/18 08:49 Dose: 40 mg Piperacillin Sod/Tazobactam (Sod 3.375 gm/ Sodium Chloride) 100 mls @ 200 mls/ hr IV Q6H [facility] Last Admin: 05/15/18 08:49 Dose: 200 mls/hr Vancomycin HCl 1 gm/ Sodium (Chloride) 250 mls @ 166.667 mls/hr IV Q8H [facility] Last Admin: 05/15/18 01:57 Dose: 166.667 mls/hr Mometasone Furoate (Asmanex 220 Mcg) 1 puff INH DAILY [facility] Last Admin: 05/15/18 08:49 Dose: 1 inhalation Montelukast Sodium (Singulair) 10 mg PO DAILY [facility] Last Admin: 05/15/18 08:48 Dose: 10 mg Pantoprazole Sodium (Protonix) 40 mg PO ACBREAKFAST [facility] Last Admin: 05/15/18 05:51 Dose: 40 mg Sertraline HCl (Zoloft) 100 mg PO DAILY [facility] Last Admin: 05/15/18 08:48 Dose: 100 mg Sodium Chloride (Saline Flush) 10 ml FLUSH ASDIRECTED PRN PRN Reason: Keep Vein Open Last Admin: 05/15/18 08:51 Dose: 10 ml Tramadol HCl (Ultram) 50 mg PO Q12H PRN PRN Reason: Pain Last Admin: 05/14/18 11:52 Dose: 50 mg Vancomycin HCl (Pharmacy To Dose - Vancomycin) 1 dose .XX ASDIRECTED [facility] Discontinued Medications Albuterol (Proventil Hfa) 0 gm INH DAILY [facility] Last Admin: 05/12/18 09:05 Dose: Not Given Vancomycin HCl 1.75 gm/ Sodium (Chloride) 500 mls @ 334 mls/hr IV ONETIME ONE Stop: 05/11/18 19:20 Last Admin: 05/11/18 18:15 Dose: 334 mls/hr Iopamidol (Isovue-300 (61%)) 100 ml IVPUSH ONETIME ONE Stop: 05/11/18 18:16 Last Admin: 05/11/18 18:23 Dose: 100 ml Morphine Sulfate (Morphine) 2 mg IVPUSH ONETIME ONE Stop: 05/11/18 19:20 Last Admin: 05/11/18 19:33 Dose: 2 mg Ondansetron HCl (Zofran) 4 mg IV ONETIME ONE Stop: 05/11/18 19:20 Last Admin: 05/11/18 19:31 Dose: 4 mg Potassium Chloride (Klor-Con 10) 40 meq PO ONETIME ONE Stop: 05/12/18 11:13 Last Admin: 05/12/18 12:46 Dose: 40 meq Potassium Chloride (Klor-Con 10) 20 meq PO ONETIME ONE Stop: 05/13/18 09:15 Last Admin: 05/13/18 10:03 Dose: 20 meq Potassium Chloride (Klor-Con 10) 20 meq PO ONETIME ONE Stop: 05/14/18 09:44 Last Admin: 05/14/18 11:43 Dose: 20 meq Potassium Chloride (Klor-Con 10) 10 meq PO ONETIME ONE Stop: 05/14/18 14:01 Last Admin: 05/14/18 15:22 Dose: 10 meq - Exam General: Reports: Alert, Oriented Neck: Reports: Supple Lungs: Reports: Clear to Auscultation, Normal Respiratory Effort Cardiovascular: Reports: Regular Rate, Regular Rhythm Extremities: No Pedal Edema Skin: Reports: Warm, Dry, Other (left hand/arm redness resolved, no abscess palpable, injection dickens) Neurological: Reports: No New Focal Deficit Psy/Mental Status: Reports: Alert, Normal Affect, Normal Mood
[2018-05-15] MEDS: traMADol 50 MG Tab PO PRN (10:55)
[2018-05-15 10:56] VITALS: BP 147/67
== END 2018-05-15 12:53 | disposition home or self-care (01) | DRG 872 ==
LOC: DL.ED 16:06 → DL.MS 19:32 → UNDOADMIN 19:32 → DL.MS 20:46
PROVIDERS: ADMIT Internal Medicine Nephrology; ATTEND Internal Medicine Nephrology
DX: A41.9 Sepsis, unspecified organism (principal); L03.114 Cellulitis of left upper limb; F15.90 Other stimulant use, unspecified, uncomplicated; E87.6 Hypokalemia; J45.909 Unspecified asthma, uncomplicated; F32.9 Major depressive disorder, single episode, unspecified; E66.9 Obesity, unspecified; Z68.30 Body mass index [BMI] 30.0-30.9, adult; Z88.6 Allergy status to analgesic agent; Z79.899 Other long term (current) drug therapy; Z87.891 Personal history of nicotine dependence; Z98.890 Other specified postprocedural states
CPT/HCPCS: 36415; 73201; 80048; 80053; 80202; 80305-QW; 81001; 83605; 84132; 85025; 87040; 87077; 87186; 96365; 96366; 96375; 99284; 99285; A9270-GY; J1650; J2270; J2405; J2543; J3370; J7040; J7050; Q9967

== ENCOUNTER 2018-12-21 19:47 | Emergency (ER) | payer MEDICARE, OTHER ==
[2018-12-21] MEDS ORDERED: Sodium Chloride 0.9% 1,000 ML IV ONE (19:57)
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
[2018-12-21] MEDS ORDERED: Famotidine 20 MG/2 ML SDV IVPUSH ONE (20:07)
[2018-12-21] MEDS ORDERED: LORazepam 2 MG/ML Syringe IVPUSH ONE (20:26)
[2018-12-21 20:46] LABS: CHLORIDE,CL 110 mmol/L (101-111); SODIUM,NA 141 mmol/L (135-145)
[2018-12-21 20:48] VITALS: BP 127/62
== END 2018-12-21 22:05 | disposition home or self-care (01) ==
LOC: DL.ED 19:47
DX: K29.20 Alcoholic gastritis without bleeding (principal); F10.120 Alcohol abuse with intoxication, uncomplicated; E66.9 Obesity, unspecified; Z88.8 Allergy status to other drugs, medicaments and biological substances; Z91.030 Bee allergy status; Z79.899 Other long term (current) drug therapy; Y90.4 Blood alcohol level of 80-99 mg/100 ml
CPT/HCPCS: 36415; 71045; 80053; 80305; 81003; 81025; 82150; 83690; 84484; 85025; 96365; 96375; 99285; G0480; J2060; J3490; J7030

== ENCOUNTER 2018-12-25 22:15 | Emergency (ER) | payer MEDICARE, OTHER ==
[2018-12-25] MEDS ORDERED: Sodium Chloride 0.9% 10 ML Syringe FLUSH PRN (22:22)
[2018-12-25] MEDS ORDERED: Sodium Chloride 0.9% 1,000 ML IV ONE ×2 (22:29→23:54)
[2018-12-25] MEDS ORDERED: Ondansetron 4 MG/2 ML SDV IV ONE (22:29)
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
[2018-12-25 23:07] LABS: ANION GAP 16.5; CHLORIDE,CL 96 mmol/L (101-111); SODIUM,NA 132 mmol/L (135-145)
[2018-12-25] MEDS ORDERED: Potassium Chloride 20 MEQ in Premix Bag 1 BAG IV ONE (23:19)
[2018-12-25] MEDS ORDERED: Iopamidol 612 MG/ML 100 ML Bottle IVPUSH ONE (23:20)
[2018-12-25 23:25] VITALS: BP 136/74
[2018-12-26 01:52] LABS: ANION GAP 13.8; CHLORIDE,CL 97 mmol/L (101-111); SODIUM,NA 131 mmol/L (135-145)
== END 2018-12-26 02:00 | disposition home or self-care (01) ==
LOC: DL.ED 22:15
DX: A08.4 Viral intestinal infection, unspecified (principal); Z79.899 Other long term (current) drug therapy; Z88.8 Allergy status to other drugs, medicaments and biological substances; Z91.030 Bee allergy status
CPT/HCPCS: 36415; 74177; 80048; 80053; 80305-QW; 81001; 81003; 81025; 82150; 83690; 85025; 96361; 96365; 96375; 99285-25; G0480; J2405; J3480; J7030; Q9967

== ENCOUNTER 2018-12-26 08:57 | Emergency (ER) | payer MEDICARE, OTHER ==
[2018-12-26 09:10] VITALS: BP 173/78
[2018-12-26] MEDS ORDERED: Ondansetron 4 MG Tab.DIS PO ONE (09:26)
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
--- NOTE | 2018-12-26 09:38 | CR ---
Clinical history: 43-year-old female with cough, shortness of breath and chest pain. Interpretation: Mild accentuation of the interstitial markings and central peribronchial "cuffing" suggesting reactive airway disease i.e. bronchitis. No new lung mass, hilar lymphadenopathy or focal lobar pneumonia when compared to 21 December 2018 exam. Normal cardiac silhouette without cephalization of flow, alveolar edema or dependent pleural fluid accumulation.
[2018-12-26 10:13] LABS: ANION GAP 13.7; CHLORIDE,CL 98 mmol/L (101-111); SODIUM,NA 133 mmol/L (135-145)
[2018-12-26] MEDS ORDERED: Potassium Chloride 10 MEQ in Premix Bag 1 BAG IV ONE (10:19)
[2018-12-26] MEDS ORDERED: Lidocaine 1% 30 ML SDV INJECT ONE (10:19)
[2018-12-26] MEDS ORDERED: Sodium Chloride 0.9% 1,000 ML IV ONE (10:47)
== END 2018-12-26 12:19 | disposition home or self-care (01) ==
LOC: DL.ED 08:57
DX: A08.4 Viral intestinal infection, unspecified (principal); E87.6 Hypokalemia; F17.210 Nicotine dependence, cigarettes, uncomplicated; J44.9 Chronic obstructive pulmonary disease, unspecified; Z79.899 Other long term (current) drug therapy; Z88.6 Allergy status to analgesic agent; Z91.030 Bee allergy status
CPT/HCPCS: 36415; 71046; 80053; 84484; 85025; 93005; 96365; 99285-25; A9270-GY; J2001; J3480

== ENCOUNTER 2019-01-09 01:19 | Emergency (ER) | payer MEDICARE, OTHER ==
[2019-01-09] MEDS: Sodium Chloride 0.9% 1,000 ML IV ONE (01:41)
[2019-01-09] MEDS: Metoclopramide 10 MG/2 ML SDV IVPUSH ONE (01:41)
[2019-01-09 01:48] VITALS: BP 153/85
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
[2019-01-09 02:17] LABS: ANION GAP 15.2; CHLORIDE,CL 107 mmol/L (101-111); SODIUM,NA 139 mmol/L (135-145)
[2019-01-09] MEDS: Famotidine 20 MG/2 ML SDV IVPUSH ONE (03:02)
== END 2019-01-09 03:22 | disposition home or self-care (01) ==
LOC: DL.ED 01:19
DX: A08.4 Viral intestinal infection, unspecified (principal); J45.909 Unspecified asthma, uncomplicated; F32.9 Major depressive disorder, single episode, unspecified; F17.210 Nicotine dependence, cigarettes, uncomplicated; Z88.8 Allergy status to other drugs, medicaments and biological substances; Z91.018 Allergy to other foods; Z79.899 Other long term (current) drug therapy
CPT/HCPCS: 36415; 80053; 80305; 81001; 82150; 83605; 83690; 84484; 85025; 87040; 96361; 96374; 96375; 99284; G0480; J2765; J3490; J7030

== ENCOUNTER 2019-01-11 12:56 | Emergency (ER) | payer MEDICARE, OTHER ==
[2019-01-11] MEDS ORDERED: Sodium Chloride 0.9% 10 ML Syringe FLUSH PRN (13:34)
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
[2019-01-11] MEDS ORDERED: Ondansetron 4 MG/2 ML SDV IV ONE ×2 (13:40→16:05)
--- NOTE | 2019-01-11 14:08 | CR ---
Clinical history: 43-year-old female emergency Department with chest pain. Interpretation: Upright AP portable chest film unremarkable for technique and inspiration (obese female). No new signs of heart failure, lung mass, hilar lymphadenopathy or focal lobar pneumonia compared 26 December 2018 exam. Normal cardiac silhouette. Leah thorax unremarkable.
[2019-01-11 14:27] LABS: ANION GAP 16.5; CHLORIDE,CL 101 mmol/L (101-111); SODIUM,NA 133 mmol/L (135-145)
[2019-01-11 15:18] VITALS: BP 188/84
[2019-01-11] MEDS ORDERED: Pantoprazole 40 MG Vial IVPUSH ONE (16:04)
[2019-01-11] MEDS ORDERED: diphenhydrAMINE 50 MG/ML SDV IVPUSH ONE (16:08)
== END 2019-01-11 17:15 | disposition home or self-care (01) ==
LOC: DL.ED 12:56
DX: K29.20 Alcoholic gastritis without bleeding (principal); D72.829 Elevated white blood cell count, unspecified; J45.909 Unspecified asthma, uncomplicated; F12.188 Cannabis abuse with other cannabis-induced disorder; Z91.030 Bee allergy status; Z88.8 Allergy status to other drugs, medicaments and biological substances; Z79.899 Other long term (current) drug therapy
CPT/HCPCS: 36415; 71045; 80053; 80305; 81001; 81025; 82150; 83690; 84484; 85025; 93005; 96374; 96375; 96376; 99284; C9113; G0480; J1200; J2405

== ENCOUNTER 2019-01-23 11:18 | Emergency (ER) | payer MEDICARE, OTHER ==
[2019-01-23 11:31] VITALS: BP 178/89
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
[2019-01-23 12:11] LABS: ACETAMINOPHEN < 10.0 ug/mL
[2019-01-23] MEDS ORDERED: Pantoprazole 40 MG Vial IVPUSH ONE (12:26)
[2019-01-23] MEDS ORDERED: Metoclopramide 10 MG/2 ML SDV IVPUSH ONE (12:27)
[2019-01-23 12:34] LABS: ANION GAP 12.6; CHLORIDE,CL 108 mmol/L (101-111); SODIUM,NA 138 mmol/L (135-145)
[2019-01-23] MEDS ORDERED: Iopamidol 612 MG/ML 100 ML Bottle IVPUSH ONE (12:37)
--- NOTE | 2019-01-23 14:22 | CT ---
Clinical history: 43-year-old 232 pound female smoker with nausea, vomiting, epigastric pain and white blood cell count 11,400. Scan technique: Volume acquisition of data from the abdomen and pelvis obtained with patient lying supine on the Siemens multislice scanner [place], [place]. All data archived in PACS system for storage, reformatting axial/sagittal/coronal planes and study. Interpretation: 1. Cholecystectomy. 2. Several large ovarian cysts located bilaterally (largest on the left measures 2.8 cm while the 2 largest on the right measuring respectively 2.6 cm and 1.8 cm diameter). 3. Liver, stomach, spleen, pancreas, adrenal glands and kidneys unremarkable. No renal cortical mass lesion, nephrolithiasis or signs of obstructive uropathy. Symmetrically distended normal urinary bladder. Vascular midline uterus unremarkable. 4. Appendix poorly identified RLQ. No calcified appendicoliths, abscess or inflammatory "dirty" peritoneal fat. 5. No other pelvic or abdominal mass lesion. No sign of mechanical bowel obstruction, ascites or free intraperitoneal air. 6. Normal cardiac silhouette. Lung bases clear. Normal caliber aortoiliac vessels. Normal lumbar spine. No hernias. CONCLUSION: Bilateral ovarian cysts. Cholecystectomy. No acute intraperitoneal abnormality.
== END 2019-01-23 14:57 | disposition home or self-care (01) ==
LOC: DL.ED 11:18
DX: K29.20 Alcoholic gastritis without bleeding (principal); J45.909 Unspecified asthma, uncomplicated; F32.9 Major depressive disorder, single episode, unspecified; Z91.030 Bee allergy status; Z79.899 Other long term (current) drug therapy
CPT/HCPCS: 36415; 74177; 80053; 80305; 81001; 81025; 82140; 82150; 83605; 83690; 85025; 87040; 96374; 96375; 99284; C9113; G0480; J2765; Q9967

== ENCOUNTER 2019-06-06 18:55 | Emergency (ER) | payer MEDICARE ==
[2019-06-06 19:15] VITALS: BP 166/108; PULSE 76
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
[2019-06-06] MEDS: Ondansetron 4 MG Tab.DIS PO ONE (20:01)
[2019-06-06 20:18] LABS: ANION GAP 12.2; CHLORIDE,CL 98 mmol/L (101-111); SODIUM,NA 135 mmol/L (135-145)
[2019-06-06] MEDS: Sodium Chloride 0.9% 1,000 ML IV ONE (20:33)
[2019-06-06] MEDS: Ondansetron 4 MG/2 ML SDV IV ONE (20:33)
[2019-06-06] MEDS: diphenhydrAMINE 25 MG Tab PO ONE (21:02)
[2019-06-06] MEDS: Clindamycin HCl 150 MG Cap PO ONE (21:02)
== END 2019-06-06 21:05 | disposition home or self-care (01) ==
LOC: DL.ED 18:55
DX: A08.4 Viral intestinal infection, unspecified (principal); S81.852D Open bite, left lower leg, subsequent encounter; L08.9 Local infection of the skin and subcutaneous tissue, unspecified; E66.9 Obesity, unspecified; J45.909 Unspecified asthma, uncomplicated; F17.210 Nicotine dependence, cigarettes, uncomplicated; Z88.6 Allergy status to analgesic agent; Z91.030 Bee allergy status; Z79.899 Other long term (current) drug therapy; Z90.49 Acquired absence of other specified parts of digestive tract
CPT/HCPCS: 36415; 80053; 80305; 81001; 81025; 83605; 85025; 87070; 99283; A9270; 87077; 87186

== ENCOUNTER 2019-08-29 20:13 | Emergency (ER) | payer MEDICARE, OTHER ==
[2019-08-29 20:18] VITALS: BP 136/74; PULSE 79
[2019-08-29] MEDS ORDERED: methylPREDNISolone Sodium Succinate 125 MG/2 ML SDV IVPUSH ONE (20:44)
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
[2019-08-29 20:56] LABS: ANION GAP 9.5; CHLORIDE,CL 104 mmol/L (101-111); SODIUM,NA 138 mmol/L (135-145)
== END 2019-08-29 21:54 | disposition home or self-care (01) ==
LOC: DL.ED 20:13
DX: J45.901 Unspecified asthma with (acute) exacerbation (principal); Z88.6 Allergy status to analgesic agent; Z91.030 Bee allergy status; Z79.899 Other long term (current) drug therapy; Z90.49 Acquired absence of other specified parts of digestive tract
CPT/HCPCS: 36415; 71045; 80053; 83605; 85025; 87040; 87081; 87430; 96374; 99283; 99285-25; J2930

== ENCOUNTER 2019-09-18 13:56 | Emergency (ER) | payer MEDICARE, OTHER ==
[~2019-09-18 13:56] MED LIST: Albuterol/Ipratropium 3.0-0.5 MG/3 ML Neb Soln NEB ONE; methylPREDNISolone Sodium Succinate 125 MG/2 ML SDV IVPUSH ONE
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
[2019-09-18 13:57] VITALS: BP 135/75
[2019-09-18 14:45] LABS: ANION GAP 9.6; CHLORIDE,CL 106 mmol/L (101-111); SODIUM,NA 138 mmol/L (135-145)
--- NOTE | 2019-09-18 15:08 | CR ---
EXAMINATION: Chest 1V Frontal SEX: Female AGE: 43 years CLINICAL HISTORY: 43-year-old obese female smoker emergency department complaining of SOB. Comparison 08/29/2019. INTERPRETATION: 1. Chronic shaggy accentuation of central lung markings as noted on 29 August 2019 exam. 2. Normal cardiac silhouette without pulmonary vascular congestion, cephalization of flow, alveolar edema or dependent new pleural fluid accumulation. 3. No new lung mass, hilar lymphadenopathy or focal lobar pneumonia. (Calcified lymph nodes or artifact left axilla) 4. No atelectasis/collapse. 5. No pneumothorax or pneumomediastinum. No free subdiaphragmatic air. CONCLUSION: No acute new cardiopulmonary abnormality since exam 29 August 2019.
[2019-09-18] MEDS ORDERED: Albuterol/Ipratropium 3.0-0.5 MG/3 ML Neb Soln NEB ONE (15:30)
[2019-09-18 15:34] VITALS: PULSE 76
== END 2019-09-18 16:44 | disposition home or self-care (01) ==
LOC: DL.ED 13:56
DX: J45.901 Unspecified asthma with (acute) exacerbation (principal); E66.9 Obesity, unspecified; Z88.6 Allergy status to analgesic agent; Z91.030 Bee allergy status; Z79.51 Long term (current) use of inhaled steroids; Z68.34 Body mass index [BMI] 34.0-34.9, adult
CPT/HCPCS: 36415; 71045; 80053; 83605; 84484; 85025; 94640; 96374; 99283; 99285; J2930; J7620-GY

== ENCOUNTER 2020-10-10 19:23 | Inpatient (IN) | payer MEDICARE, OTHER ==
[2020-10-10] MEDS ORDERED: methylPREDNISolone Sodium Succinate 125 MG/2 ML SDV IVPUSH ONE (19:27)
[2020-10-10] MEDS ORDERED: Albuterol/Ipratropium 3.0-0.5 MG/3 ML Neb Soln NEB ONE ×2 (19:27→19:40)
[2020-10-10] MEDS ORDERED: Magnesium Sulfate/Water 4 GM/100 ML BAG IV SCH (19:30)
[2020-10-10 20:03] LABS: BASE EXCESS ARTERIAL -3 mmol/L ((-2)-(+3)); BICARBONATE,ARTERIAL 22.8 mmol/L (22-26); O2 DELIVERY DEVICE AEROSOL MASK; O2 SATURATION ARTERIAL 98 % (95-100); PCO2 ARTERIAL 46 mmHg (35-45); PO2 ARTERIAL 101 mmHg (70-100)
[2020-10-10 20:04] LABS: ALLEN TEST PERFORMED
[2020-10-10] MEDS ORDERED: Magnesium Sulfate/Water 2 GM/50 ML BAG ONE (20:06)
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
[2020-10-10 20:11] LABS: ANION GAP 13.9 mEq/L (7-13); CHLORIDE,CL 103 mmol/L (98-107); SODIUM,NA 139 mmol/L (136-145)
[2020-10-10] MEDS ORDERED: Albuterol 0.083% 2.5 MG/3 ML Neb Soln NEB ONE (20:11)
--- NOTE | 2020-10-10 20:35 | CR ---
PROCEDURE INFORMATION: Exam: XR Chest, 1 View Exam date and time: 10/10/2020 8:20 PM Age: 44 years old Clinical indication: Other: Acute asthma exacerbation; Additional info: Shortness of breath TECHNIQUE: Imaging protocol: XR of the chest Views: 1 view. COMPARISON: CR Chest 1V Frontal 09/18/2019 2:35 PM FINDINGS: Lungs: Unremarkable. No consolidation. Pleural spaces: Unremarkable. No pleural effusion. No pneumothorax. Heart/Mediastinum: Unremarkable. No cardiomegaly. Bones/joints: Unremarkable. IMPRESSION: 1. No acute findings. 2. No lung infiltrates. 3. No hyperinflation. 4. No pleural effusion.
[2020-10-10 20:53] LABS: CORONAVIRUS COVID-19 NAA NEGATIVE (NEGATIVE)
[2020-10-10] MEDS ORDERED: Acetaminophen 325 MG Tab PO PRN ×2 (21:39→21:51)
[2020-10-10] MEDS ORDERED: Albuterol 0.083% 2.5 MG/3 ML Neb Soln NEB PRN (21:42)
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
[2020-10-10] MEDS ORDERED: Benzocaine/Cetylpyridinium/Menthol Lozenge MUCMEM PRN (21:50)
[2020-10-10] MEDS ORDERED: Nicotine 14 MG/24 Hr Patch TRDERM ONE (22:09)
[2020-10-10] MEDS ORDERED: Azithromycin 500 MG Vial ONE (22:15)
[2020-10-10] MEDS: cefTRIAXone 1 GM in Sodium Chloride 0.9% 50 ML IV SCH (22:26)
[2020-10-10] MEDS: Azithromycin 500 MG in Sodium Chloride 0.9% 250 ML IV SCH (22:43)
[2020-10-11] MEDS: methylPREDNISolone Sodium Succinate 40 MG/1 ML SDV IVPUSH SCH ×5 (00:27→23:27)
[2020-10-11] MEDS: Albuterol/Ipratropium 3.0-0.5 MG/3 ML Neb Soln NEB SCH ×5 (00:27→18:24)
[2020-10-11] MEDS: guaiFENesin/Dextromethorphan 100-10 MG/5 ML Soln 5 ML Cup PO PRN ×2 (03:00→19:52)
[2020-10-11 06:31] LABS: ANION GAP 13.1 mEq/L (7-13); CHLORIDE,CL 104 mmol/L (98-107); SODIUM,NA 138 mmol/L (136-145)
[2020-10-11] MEDS: Mometasone Furoate Powder 220 MCG/Puff 14 Dose Inhaler INH SCH (09:56)
[2020-10-11] MEDS: Montelukast 10 MG Tab PO SCH (09:59)
[2020-10-11] MEDS: Enoxaparin 40 MG/0.4 ML Syringe SUBCUT SCH (09:59)
--- NOTE | 2020-10-11 10:14 | PCM.PN ---
- General Info Date of Service: 10/11/20 Admission Dx/Problem (Free Text): Admission Diagnosis/Problem Admission Diagnosis/Problem Asthma with status asthmaticus Subjective Update: Patient seen and examined. Still wheezing and coughing with sputum production. Functional Status: Reports: Pain Controlled - Review of Systems General: Reports: No Symptoms HEENT: Reports: No Symptoms Pulmonary: Reports: Shortness of Breath, Cough, Sputum, Wheezing Cardiovascular: Reports: No Symptoms Gastrointestinal: Reports: No Symptoms Genitourinary: Reports: No Symptoms Musculoskeletal: Reports: No Symptoms Skin: Reports: No Symptoms Neurological: Reports: No Symptoms Psychiatric: Reports: No Symptoms - Patient Data Vitals - Most Recent: Last Vital Signs Temp 97.6 F 10/11/20 08:15 Pulse 88 10/11/20 10:06 Resp 20 10/11/20 08:15 BP 144/83 H 10/11/20 08:15 Pulse Ox 92 L 10/11/20 10:06 Weight - Most Recent: 204 lb 6.4 oz I&O - Last 24 Hours: Intake & Output 10/10/20 10/11/20 10/11/20 22:59 06:59 14:59 Intake Total 350 Balance 350 Lab Results Last 24 Hours: Laboratory Results - last 24 hr 10/10/20 10/10/20 10/10/20 Range/Units 19:32 19:32 19:32 WBC 12.9 H (5.0-10.0) 10^3/uL RBC 5.89 H (4.2-5.4) 10^6/uL Hgb 11.5 L D (12.0-16.0) g/dL Hct 38.6 (37.0-47.0) % MCV 65.5 L (80-100) fL MCH 19.5 L (27.0-34.0) pg MCHC 29.8 L (33.0-35.0) g/dL Plt Count 533 H D (150-450) 10^3/uL Neut % (Auto) 51.7 (42.2-75.2) % Lymph % (Auto) 27.3 (20.5-50.1) % [place] % (Auto) 8.6 H (2-8) % Eos % (Auto) 12.0 H (1.0-3.0) % Baso % (Auto) 0.4 (0.0-1.0) % ABG pH (7.35-7.45) ABG pCO2 (35-45) mmHg ABG pO2 (70-100) mmHg ABG HCO3 (22-26) mmol/L ABG O2 Saturation (95-100) % ABG Base Excess ((-2)-(+3)) mmol/L Santiago Test O2 Delivery Device Sodium 139 (136-145) mmol/L Potassium 3.9 (3.5-5.1) mmol/L Chloride 103 (98-107) mmol/L Carbon Dioxide 26 (21-32) mmol/L Anion Gap 13.9 H (7-13) mEq/L BUN 8 (7-18) mg/dL Creatinine 0.58 (0.55-1.02) mg/dL Est Cr Clr Drug Dosing TNP Estimated GFR (MDRD) > 60 BUN/Creatinine Ratio 13.8 (No establ ref range) Glucose 123 H (74-99) mg/dL Lactic Acid 1.0 (0.4-2.0) mmol/L Calcium 8.8 (8.5-10.1) mg/dL Total Bilirubin 0.4 (0.2-1.0) mg/dL AST 23 (15-37) U/L ALT 42 (14-59) U/L Alkaline Phosphatase 105 (46-116) U/L Troponin I < 0.017 (0.000-0.056) ng/mL Total Protein 8.6 H (6.4-8.2) g/dL Albumin 4.2 (3.4-5.0) g/dL Globulin 4.4 Albumin/Globulin Ratio 1.0 Influenza Type A RNA (NEGATIVE) Influenza Type B RNA (NEGATIVE) SARS-CoV-2 RNA ([place]OMAS) (NEGATIVE) 10/10/20 10/10/20 10/11/20 Range/Units 20:00 20:03 06:04 WBC 4.8 L (5.0-10.0) 10^3/uL RBC 5.18 (4.2-5.4) 10^6/uL Hgb 10.3 L (12.0-16.0) g/dL Hct 33.8 L (37.0-47.0) % MCV 65.3 L (80-100) fL MCH 19.9 L (27.0-34.0) pg MCHC 30.5 L (33.0-35.0) g/dL Plt Count 437 D (150-450) 10^3/uL Neut % (Auto) (42.2-75.2) % Lymph % (Auto) (20.5-50.1) % [place] % (Auto) (2-8) % Eos % (Auto) (1.0-3.0) % Baso % (Auto) (0.0-1.0) % ABG pH 7.31 L (7.35-7.45) ABG pCO2 46 H (35-45) mmHg ABG pO2 101 H (70-100) mmHg ABG HCO3 22.8 (22-26) mmol/L ABG O2 Saturation 98 (95-100) % ABG Base Excess -3 L ((-2)-(+3)) mmol/L Santiago Test Performed O2 Delivery Device Aerosol mask Sodium (136-145) mmol/L Potassium (3.5-5.1) mmol/L Chloride (98-107) mmol/L Carbon Dioxide (21-32) mmol/L Anion Gap (7-13) mEq/L BUN (7-18) mg/dL Creatinine (0.55-1.02) mg/dL Est Cr Clr Drug Dosing Estimated GFR (MDRD) BUN/Creatinine Ratio (No establ ref range) Glucose (74-99) mg/dL Lactic Acid (0.4-2.0) mmol/L Calcium (8.5-10.1) mg/dL Total Bilirubin (0.2-1.0) mg/dL AST (15-37) U/L ALT (14-59) U/L Alkaline Phosphatase (46-116) U/L Troponin I (0.000-0.056) ng/mL Total Protein (6.4-8.2) g/dL Albumin (3.4-5.0) g/dL Globulin Albumin/Globulin Ratio Influenza Type A RNA Negative (NEGATIVE) Influenza Type B RNA Negative (NEGATIVE) SARS-CoV-2 RNA (TOMAS) Negative (NEGATIVE) 10/11/20 Range/Units 06:04 WBC (5.0-10.0) 10^3/uL RBC (4.2-5.4) 10^6/uL Hgb (12.0-16.0) g/dL Hct (37.0-47.0) % MCV (80-100) fL MCH (27.0-34.0) pg MCHC (33.0-35.0) g/dL Plt Count (150-450) 10^3/uL Neut % (Auto) (42.2-75.2) % Lymph % (Auto) (20.5-50.1) % [place] % (Auto) (2-8) % Eos % (Auto) (1.0-3.0) % Baso % (Auto) (0.0-1.0) % ABG pH (7.35-7.45) ABG pCO2 (35-45) mmHg ABG pO2 (70-100) mmHg ABG HCO3 (22-26) mmol/L ABG O2 Saturation (95-100) % ABG Base Excess ((-2)-(+3)) mmol/L Santiago Test O2 Delivery Device Sodium 138 (136-145) mmol/L Potassium 4.1 (3.5-5.1) mmol/L Chloride 104 (98-107) mmol/L Carbon Dioxide 25 (21-32) mmol/L Anion Gap 13.1 H (7-13) mEq/L BUN 10 (7-18) mg/dL Creatinine 0.49 L (0.55-1.02) mg/dL Est Cr Clr Drug Dosing 122.46 Estimated GFR (MDRD) > 60 BUN/Creatinine Ratio (No establ ref range) Glucose 155 H (74-99) mg/dL Lactic Acid (0.4-2.0) mmol/L Calcium 8.5 (8.5-10.1) mg/dL Total Bilirubin (0.2-1.0) mg/dL AST (15-37) U/L ALT (14-59) U/L Alkaline Phosphatase (46-116) U/L Troponin I (0.000-0.056) ng/mL Total Protein (6.4-8.2) g/dL Albumin (3.4-5.0) g/dL Globulin Albumin/Globulin Ratio Influenza Type A RNA (NEGATIVE) Influenza Type B RNA (NEGATIVE) SARS-CoV-2 RNA (TOMAS) (NEGATIVE) Jed Results Last 24 Hours: Microbiology 10/10/20 20:08 Gram Stain - Final Sputum - Expectorated 10/10/20 19:32 Anaerobic Blood Culture - Final Blood - Venous - Iv Start Med Orders - Current: Current Medications Acetaminophen (Tylenol) 650 mg PO Q4H PRN PRN Reason: Pain (Mild 1-3)/fever Albuterol (Proventil Neb Soln) 2.5 mg NEB Q4HRRT PRN PRN Reason: Shortness of Breath Last Admin: 10/11/20 02:57 Dose: 2.5 mg Documented by: Albuterol/Ipratropium (Duoneb 3.0-0.5 Mg/3 Ml) 3 ml NEB Q6HRRT [facility] Last Admin: 10/11/20 10:06 Dose: 3 ml Documented by: Benzocaine/Menthol (Cepacol Sore Throat) 1 lozenge MUCMEM Q1H PRN PRN Reason: Sore Throat Enoxaparin Sodium (Lovenox) 40 mg SUBCUT DAILY [facility] Last Admin: 10/11/20 09:59 Dose: 40 mg Documented by: Guaifenesin/Phenylephrine HCl (Robitussin Dm) 10 ml PO Q6H PRN PRN Reason: Cough Last Admin: 10/11/20 03:00 Dose: 10 ml Documented by: Magnesium Sulfate (Magnesium Sulfate In Water 2 Gm/50 Ml) 4 gm in 100 mls @ 300 mls/hr IV ONETIME [facility] Last Admin: 10/10/20 19:43 Dose: 300 mls/hr Documented by: Ceftriaxone Sodium 1 gm/ (Sodium Chloride) 50 mls @ 100 mls/hr IV Q24H [facility] Last Admin: 10/10/20 22:26 Dose: 100 mls/hr Documented by: Azithromycin 500 mg/ Sodium (Chloride) 250 mls @ 250 mls/hr IV Q24H [facility] Last Admin: 10/10/20 22:43 Dose: 250 mls/hr Documented by: Methylprednisolone Sodium Succinate (Solu-Medrol) 40 mg IVPUSH Q6H [facility] Last Admin: 10/11/20 05:21 Dose: 40 mg Documented by: Miscellaneous Information (Remove Patch) 1 ea TRDERM Q24H [facility] Mometasone Furoate (Asmanex 220 Mcg) 1 puff INH DAILY [facility] Last Admin: 10/11/20 09:56 Dose: 1 inhalation Documented by: Montelukast Sodium (Singulair) 10 mg PO DAILY [facility] Last Admin: 10/11/20 09:59 Dose: 10 mg Documented by: Discontinued Medications Acetaminophen (Tylenol) 650 mg PO Q4H PRN PRN Reason: Pain (mild 1-3) Stop: 10/11/20 00:00 Albuterol (Proventil Neb Soln) 10 mg NEB ONETIME ONE Stop: 10/10/20 20:12 Last Admin: 10/10/20 20:23 Dose: 10 mg Documented by: Albuterol/Ipratropium (Duoneb 3.0-0.5 Mg/3 Ml) 3 ml NEB ONETIME ONE Stop: 10/10/20 19:28 Last Admin: 10/10/20 19:32 Dose: 3 ml Documented by: Albuterol/Ipratropium (Duoneb 3.0-0.5 Mg/3 Ml) 3 ml NEB ONETIME ONE Stop: 10/10/20 19:41 Last Admin: 10/10/20 19:44 Dose: 3 ml Documented by: Azithromycin (Zithromax) Confirm Administered Dose 500 mg .ROUTE .STK-MED ONE Stop: 10/10/20 22:16 Last Admin: 10/10/20 22:40 Dose: Not Given Documented by: Magnesium Sulfate (Magnesium Sulfate In Water 2 Gm/50 Ml) Confirm Administered Dose 2 gm in 50 mls @ as directed .ROUTE .STK-MED ONE Stop: 10/10/20 20:07 Last Admin: 10/10/20 20:13 Dose: Not Given Documented by: Methylprednisolone Sodium Succinate (Solu-Medrol) 125 mg IVPUSH ONETIME ONE Stop: 10/10/20 19:28 Last Admin: 10/10/20 19:35 Dose: 125 mg Documented by: Nicotine (Habitrol) 14 mg TRDERM ONETIME ONE Stop: 10/10/20 22:10 Last Admin: 10/10/20 22:37 Dose: 14 mg Documented by: - Exam Quality Assessment: Supplemental Oxygen General: Alert, Oriented HEENT: Pupils Equal, Pupils Reactive, EOMI, Mucous Membr. Moist/[place] Neck: Supple Lungs: Decreased Breath Sounds, Wheezing Cardiovascular: Regular Rate, Regular Rhythm GI/Abdominal Exam: Normal Bowel Sounds, Soft, Non-Tender, No Organomegaly, No Distention, No Abnormal Bruit, No Mass, Pelvis Stable Back Exam: Normal Inspection, Full Range of Motion Extremities: Normal Inspection, Normal Range of Motion, Non-Tender, No Pedal Edema, Normal Capillary Refill Skin: Warm, Dry, Intact Neurological: No New Focal Deficit Psy/Mental Status: Alert, Normal Affect, Normal Mood Sepsis Event Note - Evaluation Sepsis Screening Result: No Definite Risk - Focused Exam Vital Signs: Vital Signs Temp Pulse Pulse Resp BP Pulse Ox Pulse Ox 10/11/20 10:06 88 92 L 10/11/20 08:15 97.6 F 85 20 144/83 H 96 10/11/20 04:50 90 94 L 10/11/20 00:51 95 10/11/20 00:31 97.6 F 93 22 H 139/79 99 10/10/20 23:47 100 96 10/10/20 22:51 95 - Problem List Review Problem List Initiated/Reviewed/Updated: Yes - My Orders Last 24 Hours: My Active Orders 10/10/20 Dinner Regular Diet [DIET] 10/10/20 21:39 Oxygen Therapy [RC] PRN VTE/DVT Education [RC] PER UNIT ROUTINE Vital Signs [RC] Q4H Acetaminophen [TylenoL] 650 mg PO Q4H PRN Resuscitation Status Routine 10/10/20 21:42 RT Aerosol Therapy [RC] ASDIRECTED Albuterol [Proventil Neb Soln] 2.5 mg NEB Q4HRRT PRN 10/10/20 21:50 Benzocaine/Cetylpyrd/Menthol [Cepacol Sore Throat] 1 lozenge MUCMEM Q1H PRN 10/10/20 21:52 Dextromethorphan/guaiFENesin [Robitussin DM] 10 ml PO Q6H PRN 10/10/20 22:00 Azithromycin [Zithromax] 500 mg Sodium Chloride 0.9% [Normal Saline (AdvBag)] 250 ml IV Q24H cefTRIAXone [Rocephin] 1 gm Sodium Chloride 0.9% [Normal Saline] 50 ml IV Q24H 10/11/20 00:00 methylPREDNISolone Sod Succ [Solu-MEDROL] 40 mg IVPUSH Q6H 10/11/20 01:00 Albuterol/Ipratropium [DuoNeb 3.0-0.5 MG/3 ML] 3 ml NEB Q6HRRT 10/11/20 09:00 Enoxaparin [Lovenox] 40 mg SUBCUT DAILY Mometasone Furoate [Asmanex 220 MCG] 1 puff INH DAILY Montelukast [Singulair] 10 mg PO DAILY 10/11/20 21:00 Remove Patch 1 ea TRDERM Q24H - Plan Plan:: Asthma exacerbation Acute hypoxic respiratory failure Medication Non-compliance - Continue Solumedrol 40 mg IV every 6 hours - Continue Duonebs QID and albuterol prn - Oxygen supplementation as needed - Continue mometasone - Continue ceftriaxone and azithromycin as patient is high risk for further respiratory decline in the possibility of pulmonary infection Tobacco use disorder - 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
[2020-10-11] MEDS ORDERED: Ondansetron 4 MG/2 ML SDV IVPUSH PRN (18:02)
[2020-10-11] MEDS: cefTRIAXone 1 GM in Sodium Chloride 0.9% 50 ML IV SCH (21:17)
[2020-10-11] MEDS: Sodium Chloride 0.9% 10 ML Syringe FLUSH PRN ×2 (21:49→23:27)
[2020-10-11] MEDS: Azithromycin 500 MG in Sodium Chloride 0.9% 250 ML IV SCH (21:50)
[2020-10-12] MEDS: Albuterol/Ipratropium 3.0-0.5 MG/3 ML Neb Soln NEB SCH ×3 (01:02→14:10)
[2020-10-12] MEDS: Sodium Chloride 0.9% 10 ML Syringe FLUSH PRN (05:28)
[2020-10-12] MEDS: methylPREDNISolone Sodium Succinate 40 MG/1 ML SDV IVPUSH SCH ×2 (05:29→11:49)
[2020-10-12 06:02] LABS: ANION GAP 14.5 mEq/L (7-13); CHLORIDE,CL 105 mmol/L (98-107); SODIUM,NA 141 mmol/L (136-145)
[2020-10-12] MEDS: Mometasone Furoate Powder 220 MCG/Puff 14 Dose Inhaler INH SCH (08:28)
[2020-10-12] MEDS: Montelukast 10 MG Tab PO SCH (08:32)
[2020-10-12] MEDS: Enoxaparin 40 MG/0.4 ML Syringe SUBCUT SCH (10:57)
--- NOTE | 2020-10-12 11:14 | PCM.PN ---
- General Info Date of Service: 10/12/20 Admission Dx/Problem (Free Text): Admission Diagnosis/Problem Admission Diagnosis/Problem Asthma with status asthmaticus Subjective Update: Patient seen and examined. She is still wheezing and coughing with sputum production. Now off oxygen. Functional Status: Reports: Ambulating - Review of Systems General: Reports: Weakness HEENT: Reports: No Symptoms Pulmonary: Reports: Shortness of Breath, Cough, Sputum, Wheezing Cardiovascular: Reports: No Symptoms Gastrointestinal: Reports: No Symptoms Genitourinary: Reports: No Symptoms Musculoskeletal: Reports: No Symptoms Skin: Reports: No Symptoms Neurological: Reports: No Symptoms Psychiatric: Reports: No Symptoms - Patient Data Vitals - Most Recent: Last Vital Signs Temp 98.7 F 10/12/20 09:00 Pulse 88 10/12/20 09:00 Resp 22 H 10/12/20 09:00 BP 142/84 H 10/12/20 09:00 Pulse Ox 94 L 10/12/20 09:00 Weight - Most Recent: 204 lb 6.4 oz I&O - Last 24 Hours: Intake & Output 10/11/20 10/12/20 10/12/20 22:59 06:59 14:59 Intake Total 970 250 Output Total 1000 Balance -30 250 Lab Results Last 24 Hours: Laboratory Results - last 24 hr 10/12/20 10/12/20 Range/Units 05:35 05:35 WBC 16.0 H (5.0-10.0) 10^3/uL RBC 5.13 (4.2-5.4) 10^6/uL Hgb 10.1 L (12.0-16.0) g/dL Hct 33.8 L (37.0-47.0) % MCV 65.9 L (80-100) fL MCH 19.7 L (27.0-34.0) pg MCHC 29.9 L (33.0-35.0) g/dL Plt Count 465 H (150-450) 10^3/uL Sodium 141 (136-145) mmol/L Potassium 4.5 (3.5-5.1) mmol/L Chloride 105 (98-107) mmol/L Carbon Dioxide 26 (21-32) mmol/L Anion Gap 14.5 H (7-13) mEq/L BUN 18 (7-18) mg/dL Creatinine 0.65 (0.55-1.02) mg/dL Est Cr Clr Drug Dosing 92.32 mL/min Estimated GFR (MDRD) > 60 Glucose 145 H (74-99) mg/dL Calcium 8.5 (8.5-10.1) mg/dL Jed Results Last 24 Hours: Microbiology 10/10/20 20:08 Gram Stain - Final Sputum - Expectorated Sputum Culture - Preliminary 10/10/20 19:32 Aerobic Blood Culture - Preliminary Blood - Venous - Iv Start NO GROWTH AFTER 1 DAY Anaerobic Blood Culture - Final Med Orders - Current: Current Medications Acetaminophen (Tylenol) 650 mg PO Q4H PRN PRN Reason: Pain (Mild 1-3)/fever Last Admin: 10/11/20 19:52 Dose: 650 mg Documented by: Albuterol (Proventil Neb Soln) 2.5 mg NEB Q4HRRT PRN PRN Reason: Shortness of Breath Last Admin: 10/11/20 02:57 Dose: 2.5 mg Documented by: Albuterol/Ipratropium (Duoneb 3.0-0.5 Mg/3 Ml) 3 ml NEB Q6HRRT [facility] Last Admin: 10/12/20 08:24 Dose: 3 ml Documented by: Benzocaine/Menthol (Cepacol Sore Throat) 1 lozenge MUCMEM Q1H PRN PRN Reason: Sore Throat Enoxaparin Sodium (Lovenox) 40 mg SUBCUT DAILY [facility] Last Admin: 10/12/20 10:57 Dose: 40 mg Documented by: Furosemide (Lasix) 20 mg IVPUSH NOW ONE Stop: 10/12/20 11:12 Guaifenesin/Phenylephrine HCl (Robitussin Dm) 10 ml PO Q6H PRN PRN Reason: Cough Last Admin: 10/11/20 19:52 Dose: 10 ml Documented by: Magnesium Sulfate (Magnesium Sulfate In Water 2 Gm/50 Ml) 4 gm in 100 mls @ 300 mls/hr IV ONETIME [facility] Last Admin: 10/10/20 19:43 Dose: 300 mls/hr Documented by: Ceftriaxone Sodium 1 gm/ (Sodium Chloride) 50 mls @ 100 mls/hr IV Q24H [facility] Last Infusion: 10/11/20 21:49 Dose: Infused Documented by: Azithromycin 500 mg/ Sodium (Chloride) 250 mls @ 250 mls/hr IV Q24H [facility] Last Infusion: 10/11/20 23:25 Dose: Infused Documented by: Methylprednisolone Sodium Succinate (Solu-Medrol) 40 mg IVPUSH Q6H [facility] Last Admin: 10/12/20 05:29 Dose: 40 mg Documented by: Miscellaneous Information (Remove Patch) 1 ea TRDERM Q24H [facility] Last Admin: 10/11/20 21:14 Dose: 1 ea Documented by: Mometasone Furoate (Asmanex 220 Mcg) 1 puff INH DAILY [facility] Last Admin: 10/12/20 08:28 Dose: 1 inhalation Documented by: Montelukast Sodium (Singulair) 10 mg PO DAILY [facility] Last Admin: 10/12/20 08:32 Dose: 10 mg Documented by: Ondansetron HCl (Zofran) 4 mg IVPUSH Q6HR PRN PRN Reason: Nausea Last Admin: 10/11/20 18:23 Dose: 4 mg Documented by: Sodium Chloride (Saline Flush) 10 ml FLUSH ASDIRECTED PRN PRN Reason: IV Use Last Admin: 10/12/20 05:28 Dose: 10 ml Documented by: Discontinued Medications Acetaminophen (Tylenol) 650 mg PO Q4H PRN PRN Reason: Pain (mild 1-3) Stop: 10/11/20 00:00 Albuterol (Proventil Neb Soln) 10 mg NEB ONETIME ONE Stop: 10/10/20 20:12 Last Admin: 10/10/20 20:23 Dose: 10 mg Documented by: Albuterol/Ipratropium (Duoneb 3.0-0.5 Mg/3 Ml) 3 ml NEB ONETIME ONE Stop: 10/10/20 19:28 Last Admin: 10/10/20 19:32 Dose: 3 ml Documented by: Albuterol/Ipratropium (Duoneb 3.0-0.5 Mg/3 Ml) 3 ml NEB ONETIME ONE Stop: 10/10/20 19:41 Last Admin: 10/10/20 19:44 Dose: 3 ml Documented by: Azithromycin (Zithromax) Confirm Administered Dose 500 mg .ROUTE .STK-MED ONE Stop: 10/10/20 22:16 Last Admin: 10/10/20 22:40 Dose: Not Given Documented by: Magnesium Sulfate (Magnesium Sulfate In Water 2 Gm/50 Ml) Confirm Administered Dose 2 gm in 50 mls @ as directed .ROUTE .STK-MED ONE Stop: 10/10/20 20:07 Last Admin: 10/10/20 20:13 Dose: Not Given Documented by: Methylprednisolone Sodium Succinate (Solu-Medrol) 125 mg IVPUSH ONETIME ONE Stop: 10/10/20 19:28 Last Admin: 10/10/20 19:35 Dose: 125 mg Documented by: Nicotine (Habitrol) 14 mg TRDERM ONETIME ONE Stop: 10/10/20 22:10 Last Admin: 10/10/20 22:37 Dose: 14 mg Documented by: - Exam General: Alert, Oriented HEENT: Pupils Equal, Pupils Reactive, EOMI, Mucous Membr. Moist/[place] Neck: Supple Lungs: Decreased Breath Sounds, Wheezing Cardiovascular: Regular Rate, Regular Rhythm GI/Abdominal Exam: Normal Bowel Sounds, Soft, Non-Tender, No Organomegaly, No Distention, No Abnormal Bruit, No Mass, Pelvis Stable Back Exam: Normal Inspection, Full Range of Motion Extremities: Normal Inspection, Normal Range of Motion, Non-Tender, No Pedal Edema, Normal Capillary Refill Skin: Warm, Dry, Intact Neurological: No New Focal Deficit Psy/Mental Status: Alert, Normal Affect, Normal Mood Sepsis Event Note - Evaluation Sepsis Screening Result: No Definite Risk - Focused Exam Vital Signs: Vital Signs Temp Pulse Resp BP Pulse Ox Pulse Ox 10/12/20 09:00 98.7 F 88 22 H 142/84 H 94 L 10/12/20 05:15 98.2 F 83 20 136/76 93 L 10/12/20 01:05 95 10/12/20 00:00 20 136/76 96 94 L - Problem List Review Problem List Initiated/Reviewed/Updated: Yes - My Orders Last 24 Hours: My Active Orders 10/11/20 18:02 Ondansetron [Zofran] 4 mg IVPUSH Q6HR PRN 10/11/20 21:00 Remove Patch 1 ea TRDERM Q24H 10/11/20 21:16 Sodium Chloride 0.9% [Saline Flush] 10 ml FLUSH ASDIRECTED PRN 10/12/20 09:58 Patient Status [ADT] Routine 10/12/20 11:11 Furosemide [Lasix] 20 mg IVPUSH NOW ONE - Plan Plan:: Asthma exacerbation Acute hypoxic respiratory failure Medication Non-compliance - Continue Solumedrol 40 mg IV every 6 hours - Continue Duonebs QID and albuterol prn - Oxygen supplementation as needed - Continue mometasone - Continue ceftriaxone and azithromycin as patient is high risk for further r espiratory decline in the possibility of pulmonary infection - Give lasix 20 mg IV x1 Tobacco use disorder - [employer] on cessation - PRN nicoderm/lozenges
[2020-10-12] MEDS ORDERED: Furosemide 40 MG/4 ML VIAL IVPUSH ONE (11:30)
[2020-10-12 13:37] VITALS: BP 142/80; PULSE 90
--- NOTE | 2020-10-13 08:04 | PCM.DCSUM1 ---
Discharge Summary - Hospital Course Free Text/Narrative:: Patient is a 44F with a medical history of asthma, medication non-compliance and tobacco use disorder who presented with shortness of breath, cough and hypoxia. She initially required 3L of oxygen. Labs showed leukocytosis of 12k. CXR was unremarkable. She received solumedrol 125 mg, Magnesium 4g, albuterol and Duonebs. She was being treated for acute exacerbation of asthma. Patient made clinical improvement but was still very wheezy. However, she decide to leave AGAINST MEDICAL ADVICE even after I had a discussion with her about my concerns. - Discharge Data Discharge Date: 10/12/20 Discharge Disposition: Against Medical Advice 07 Condition: Good - Referral to Home Health Primary Care Physician: PCP None - Discharge Plan Home Medications: Home Meds Albuterol [Ventolin HFA] 1 puff INH DAILY 03/16/14 [History] Ipratropium/Albuterol Sulfate [Duoneb 0.5 mg-3 mg/3 ml Soln] 3 ml INH Q4HR PRN 03/16/14 [History] Mometasone Furoate [Asmanex] 220 mcg ORAL.INH DAILY 07/05/16 [History] Montelukast [Singulair] 10 mg PO DAILY 07/05/16 [History] Forms: ED Department Discharge Referrals: PCP,None [Primary Care Provider] - - Discharge Summary/Plan Comment DC Time >30 min.: Yes - Patient Data Vitals - Most Recent: Last Vital Signs Temp 98.0 F 10/12/20 13:00 Pulse 90 10/12/20 13:00 Resp 22 H 10/12/20 13:00 BP 142/80 H 10/12/20 13:00 Pulse Ox 93 L 10/12/20 13:00 Weight - Most Recent: 204 lb 6.4 oz ELLYN Results - Last 24 hrs: Microbiology 10/10/20 20:08 Gram Stain - Final Sputum - Expectorated Sputum Culture - Preliminary 10/10/20 19:32 Aerobic Blood Culture - Preliminary Blood - Venous - Iv Start NO GROWTH AFTER 2 DAYS Anaerobic Blood Culture - Final Med Orders - Current: Current Medications Discontinued Medications Acetaminophen (Tylenol) 650 mg PO Q4H PRN PRN Reason: Pain (Mild 1-3)/fever Last Admin: 10/11/20 19:52 Dose: 650 mg Documented by: Acetaminophen (Tylenol) 650 mg PO Q4H PRN PRN Reason: Pain (mild 1-3) Stop: 10/11/20 00:00 Albuterol (Proventil Neb Soln) 10 mg NEB ONETIME ONE Stop: 10/10/20 20:12 Last Admin: 10/10/20 20:23 Dose: 10 mg Documented by: Albuterol (Proventil Neb Soln) 2.5 mg NEB Q4HRRT PRN PRN Reason: Shortness of Breath Last Admin: 10/11/20 02:57 Dose: 2.5 mg Documented by: Albuterol/Ipratropium (Duoneb 3.0-0.5 Mg/3 Ml) 3 ml NEB ONETIME ONE Stop: 10/10/20 19:28 Last Admin: 10/10/20 19:32 Dose: 3 ml Documented by: Albuterol/Ipratropium (Duoneb 3.0-0.5 Mg/3 Ml) 3 ml NEB ONETIME ONE Stop: 10/10/20 19:41 Last Admin: 10/10/20 19:44 Dose: 3 ml Documented by: Albuterol/Ipratropium (Duoneb 3.0-0.5 Mg/3 Ml) 3 ml NEB Q6HRRT [facility] Last Admin: 10/12/20 14:10 Dose: 3 ml Documented by: Azithromycin (Zithromax) Confirm Administered Dose 500 mg .ROUTE .STK-MED ONE Stop: 10/10/20 22:16 Last Admin: 10/10/20 22:40 Dose: Not Given Documented by: Benzocaine/Menthol (Cepacol Sore Throat) 1 lozenge MUCMEM Q1H PRN PRN Reason: Sore Throat Enoxaparin Sodium (Lovenox) 40 mg SUBCUT DAILY [facility] Last Admin: 10/12/20 10:57 Dose: 40 mg Documented by: Furosemide (Lasix) 20 mg IVPUSH NOW ONE Stop: 10/12/20 11:31 Last Admin: 10/12/20 11:49 Dose: 20 mg Documented by: Guaifenesin/Phenylephrine HCl (Robitussin Dm) 10 ml PO Q6H PRN PRN Reason: Cough Last Admin: 10/11/20 19:52 Dose: 10 ml Documented by: Magnesium Sulfate (Magnesium Sulfate In Water 2 Gm/50 Ml) 4 gm in 100 mls @ 300 mls/hr IV ONETIME [facility] Last Admin: 10/10/20 19:43 Dose: 300 mls/hr Documented by: Magnesium Sulfate (Magnesium Sulfate In Water 2 Gm/50 Ml) Confirm Administered Dose 2 gm in 50 mls @ as directed .ROUTE .STK-MED ONE Stop: 10/10/20 20:07 Last Admin: 10/10/20 20:13 Dose: Not Given Documented by: Ceftriaxone Sodium 1 gm/ (Sodium Chloride) 50 mls @ 100 mls/hr IV Q24H [facility] Last Infusion: 10/11/20 21:49 Dose: Infused Documented by: Azithromycin 500 mg/ Sodium (Chloride) 250 mls @ 250 mls/hr IV Q24H [facility] Last Infusion: 10/11/20 23:25 Dose: Infused Documented by: Methylprednisolone Sodium Succinate (Solu-Medrol) 125 mg IVPUSH ONETIME ONE Stop: 10/10/20 19:28 Last Admin: 10/10/20 19:35 Dose: 125 mg Documented by: Methylprednisolone Sodium Succinate (Solu-Medrol) 40 mg IVPUSH Q6H [facility] Last Admin: 10/12/20 11:49 Dose: 40 mg Documented by: Miscellaneous Information (Remove Patch) 1 ea TRDERM Q24H [facility] Last Admin: 10/11/20 21:14 Dose: 1 ea Documented by: Mometasone Furoate (Asmanex 220 Mcg) 1 puff INH DAILY [facility] Last Admin: 10/12/20 08:28 Dose: 1 inhalation Documented by: Montelukast Sodium (Singulair) 10 mg PO DAILY [facility] Last Admin: 10/12/20 08:32 Dose: 10 mg Documented by: Nicotine (Habitrol) 14 mg TRDERM ONETIME ONE Stop: 10/10/20 22:10 Last Admin: 10/10/20 22:37 Dose: 14 mg Documented by: Ondansetron HCl (Zofran) 4 mg IVPUSH Q6HR PRN PRN Reason: Nausea Last Admin: 10/11/20 18:23 Dose: 4 mg Documented by: Sodium Chloride (Saline Flush) 10 ml FLUSH ASDIRECTED PRN PRN Reason: IV Use Last Admin: 10/12/20 05:28 Dose: 10 ml Documented by: Comments:: Left AMA. See exam in progress note from earlier today.
== END 2020-10-12 15:04 | disposition left against medical advice (07) | DRG 189 ==
LOC: DL.ED 19:23 → DL.MS 21:03 → OBSVTOIN 10-12 09:58
PROVIDERS: ADMIT Internal Medicine; ATTEND Internal Medicine
DX: J45.51 Severe persistent asthma with (acute) exacerbation (principal); J96.01 Acute respiratory failure with hypoxia; Z88.8 Allergy status to other drugs, medicaments and biological substances; J45.901 Unspecified asthma with (acute) exacerbation; F32.9 Major depressive disorder, single episode, unspecified; Z20.822 Contact with and (suspected) exposure to COVID-19; E66.9 Obesity, unspecified; Z79.899 Other long term (current) drug therapy; Z88.6 Allergy status to analgesic agent; Z91.030 Bee allergy status; Z90.49 Acquired absence of other specified parts of digestive tract; Z72.0 Tobacco use; Z68.36 Body mass index [BMI] 36.0-36.9, adult; Z91.14 Patient's other noncompliance with medication regimen
CPT/HCPCS: 0240U; 36415; 36600; 71045; 80048; 80053; 82803; 83605; 84484; 85025; 85027; 87040; 87070; 87205; 93005; 94640; 96365; 96375; 99285; 87077; 87186; 96366; 96367; 96372; 96376; A9270-GY; G0378; J0456; J0696; J1650; J1940; J2405; J2920; J2930; J3475; J7050; J7613-GY; J7620-GY

== ENCOUNTER 2020-10-19 19:31 | Emergency (ER) | payer MEDICARE ==
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
== END 2020-10-19 19:44 ==
LOC: DL.ED 19:31
DX: R41.82 Altered mental status, unspecified (principal); R45.6 Violent behavior; F19.129 Other psychoactive substance abuse with intoxication, unspecified; J45.909 Unspecified asthma, uncomplicated; E66.9 Obesity, unspecified; Z88.8 Allergy status to other drugs, medicaments and biological substances; Z91.030 Bee allergy status; Z79.899 Other long term (current) drug therapy
CPT/HCPCS: 99282; 99283

== ENCOUNTER 2021-09-13 20:31 | Emergency (ER) | payer MEDICARE | END 2021-09-14 01:34 | disposition left against medical advice (07) | LOC: DL.ED 20:31 | DX: R06.02 Shortness of breath (principal); Z53.21 Procedure and treatment not carried out due to patient leaving prior to being seen by health care provider ==

== ENCOUNTER 2021-09-16 18:02 | Emergency (ER) | payer MEDICARE ==
[2021-09-16 19:02] LABS: CORONAVIRUS COVID-19 NAA NEGATIVE (NEGATIVE); RESPIRATORY SYNCYTIAL VIR NAA NEGATIVE (NEGATIVE)
[2021-09-16 21:41] VITALS: BP 152/80; PULSE 63
[2021-09-16] MEDS ORDERED: Albuterol/Ipratropium 3.0-0.5 MG/3 ML Neb Soln NEB ONE (21:45)
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
[2021-09-16 22:29] LABS: ANION GAP 16.6 mEq/L (7-13); CHLORIDE,CL 105 mmol/L (98-107); SODIUM,NA 144 mmol/L (136-145)
--- NOTE | 2021-09-16 22:34 | CR ---
PROCEDURE INFORMATION: Exam: XR Chest Exam date and time: 09/16/2021 10:16 PM Age: 45 years old Clinical indication: Shortness of breath; Additional info: Short of breath TECHNIQUE: Imaging protocol: XR of the chest. Views: 1 view. COMPARISON: CR Chest 1V Frontal 10/10/2020 8:20 PM FINDINGS: Lungs: Unremarkable. No consolidation. Pleural spaces: Unremarkable. No pleural effusion. No pneumothorax. Heart/Mediastinum: Unremarkable. No cardiomegaly. Bones/joints: Unremarkable. IMPRESSION: No acute findings.
[2021-09-16] MEDS ORDERED: Albuterol 6.7 GM Inhaler INH ONE (22:46)
== END 2021-09-16 22:52 | disposition home or self-care (01) ==
LOC: DL.ED 18:02
DX: J10.1 Influenza due to other identified influenza virus with other respiratory manifestations (principal); J45.901 Unspecified asthma with (acute) exacerbation; E66.9 Obesity, unspecified; Z88.8 Allergy status to other drugs, medicaments and biological substances; Z91.030 Bee allergy status; Z68.41 Body mass index [BMI] 40.0-44.9, adult; Z72.0 Tobacco use
CPT/HCPCS: 0241U; 36415; 71045; 80053; 83605; 85025; 87040; 99285; A9270; J7620-GY

== ENCOUNTER 2021-10-08 00:15 | Inpatient (IN) | payer MEDICARE ==
[2021-10-08] MEDS ORDERED: Albuterol/Ipratropium 3.0-0.5 MG/3 ML Neb Soln NEB ONE (00:17)
[2021-10-08] MEDS ORDERED: methylPREDNISolone Sodium Succinate 125 MG/2 ML SDV IVPUSH ONE (00:17)
[2021-10-08 00:55] LABS: ANION GAP 8.7 mEq/L (7-13); CHLORIDE,CL 105 mmol/L (98-107); SODIUM,NA 137 mmol/L (136-145)
[2021-10-08] MEDS ORDERED: Albuterol 0.083% 2.5 MG/3 ML Neb Soln NEB ONE ×2 (01:42→03:04)
[2021-10-08] MEDS ORDERED: Magnesium Sulfate/Water 2 GM in Premix Bag 1 BAG IV ONE (01:51)
[2021-10-08] MEDS ORDERED: Ondansetron 4 MG Tab.DIS PO ONE (02:17)
[2021-10-08] MEDS ORDERED: Docusate Sodium 100 MG Cap PO PRN (05:22)
[2021-10-08] MEDS ORDERED: Ondansetron 4 MG/2 ML SDV IVPUSH PRN (05:22)
[2021-10-08] MEDS ORDERED: Albuterol 0.083% 2.5 MG/3 ML Neb Soln NEB PRN (05:22)
[2021-10-08] MEDS ORDERED: methylPREDNISolone Sodium Succinate 40 MG/1 ML SDV IVPUSH SCH (06:00)
[2021-10-08] MEDS: Levofloxacin 500 MG Tab PO SCH (06:13)
[2021-10-08] MEDS: Enoxaparin 40 MG/0.4 ML Syringe SUBCUT SCH (08:30)
[2021-10-08] MEDS: methylPREDNISolone Sodium Succinate 40 MG/1 ML SDV IVPUSH SCH ×2 (08:30→16:15)
[2021-10-08] MEDS: Sodium Chloride 0.9% 10 ML Syringe FLUSH SCH ×2 (08:34→20:13)
[2021-10-08] MEDS: Albuterol/Ipratropium 3.0-0.5 MG/3 ML Neb Soln NEB SCH ×3 (09:05→18:45)
[2021-10-08] MEDS: Budesonide 0.5 MG/2 ML Neb Susp NEB SCH ×2 (09:05→18:46)
[2021-10-08] MEDS: Acetaminophen 325 MG Tab PO PRN (16:19)
[2021-10-09] MEDS: methylPREDNISolone Sodium Succinate 40 MG/1 ML SDV IVPUSH SCH ×4 (00:23→23:34)
[2021-10-09] MEDS: Albuterol/Ipratropium 3.0-0.5 MG/3 ML Neb Soln NEB SCH ×4 (01:11→18:48)
[2021-10-09 06:21] LABS: ANION GAP 15.8 mEq/L (7-13); CHLORIDE,CL 105 mmol/L (98-107); SODIUM,NA 139 mmol/L (136-145)
[2021-10-09] MEDS: Budesonide 0.5 MG/2 ML Neb Susp NEB SCH ×2 (07:34→18:48)
[2021-10-09] MEDS: Levofloxacin 500 MG Tab PO SCH (11:23)
[2021-10-09] MEDS: Enoxaparin 40 MG/0.4 ML Syringe SUBCUT SCH (11:23)
[2021-10-09] MEDS: Sodium Chloride 0.9% 10 ML Syringe FLUSH SCH ×2 (11:24→23:37)
[2021-10-09] MEDS: Acetaminophen 325 MG Tab PO PRN (21:38)
[2021-10-10] MEDS: Albuterol/Ipratropium 3.0-0.5 MG/3 ML Neb Soln NEB SCH ×3 (00:55→14:19)
[2021-10-10] MEDS: Budesonide 0.5 MG/2 ML Neb Susp NEB SCH (07:23)
[2021-10-10] MEDS ORDERED: Pneumococcal Polyvalent-23 Vaccine 0.5 ML SDV IM ONE (08:00)
[2021-10-10 08:40] VITALS: PULSE 85
[2021-10-10] MEDS: Levofloxacin 500 MG Tab PO SCH (08:41)
[2021-10-10] MEDS: Enoxaparin 40 MG/0.4 ML Syringe SUBCUT SCH (08:42)
[2021-10-10] MEDS: Sodium Chloride 0.9% 10 ML Syringe FLUSH SCH (08:43)
[2021-10-10 08:44] VITALS: BP 132/58
[2021-10-10] MEDS ORDERED: predniSONE 20 MG Tab PO SCH (09:00)
[2021-10-10] MEDS: methylPREDNISolone Sodium Succinate 40 MG/1 ML SDV IVPUSH SCH (11:13)
[2021-10-10] MEDS ORDERED: FLU VAC QS 21-22(6MS UP)CEL/PF 60 MCG/0.5 ML SYRINGE IM ONE (11:30)
[2021-10-11] MEDS ORDERED: predniSONE 20 MG Tab PO SCH (08:00)
== END 2021-10-10 14:10 | disposition home or self-care (01) | DRG 202 ==
LOC: DL.ED 00:15 → DL.MS 03:09
PROVIDERS: ADMIT Internal Medicine; ATTEND Internal Medicine
DX: J45.901 Unspecified asthma with (acute) exacerbation (principal); Z68.41 Body mass index [BMI] 40.0-44.9, adult; Z88.8 Allergy status to other drugs, medicaments and biological substances; Z91.014 Allergy to mammalian meats; E66.9 Obesity, unspecified; F32.A Depression, unspecified; Z96.649 Presence of unspecified artificial hip joint; Z96.659 Presence of unspecified artificial knee joint; F17.200 Nicotine dependence, unspecified, uncomplicated; Z20.822 Contact with and (suspected) exposure to COVID-19; Z88.6 Allergy status to analgesic agent; Z91.030 Bee allergy status; Z79.899 Other long term (current) drug therapy; Z90.49 Acquired absence of other specified parts of digestive tract
CPT/HCPCS: 36415; 71045; 80048; 80053; 83605; 83735; 85025; 87040; 90732; 94640; 96365; 96366; 96375; 99285-25; A9270-GY; G0009; J1650; J2920; J2930; J3475; J7512; J7613-GY; J7620-GY; U0002

== ENCOUNTER 2022-01-25 23:18 | Emergency (ER) | payer MEDICARE ==
[~2022-01-25 23:18] MED LIST changes: +Acetaminophen 500 MG Tab PO ONE; -Albuterol/Ipratropium 3.0-0.5 MG/3 ML Neb Soln NEB ONE; -methylPREDNISolone Sodium Succinate 125 MG/2 ML SDV IVPUSH ONE
[2022-01-25 23:49] LABS: ANION GAP 13.5 mEq/L (7-13); CHLORIDE,CL 106 mmol/L (98-107); SODIUM,NA 139 mmol/L (136-145)
[2022-01-26] MEDS ORDERED: Acetaminophen 500 MG Tab PO ONE (00:07)
[2022-01-26] MEDS ORDERED: Ondansetron 4 MG/2 ML SDV IVPUSH ONE ×2 (00:26→00:32)
[2022-01-26] MEDS ORDERED: fentaNYL 100 MCG/2 ML SDV IVPUSH ONE ×2 (00:26→00:34)
[2022-01-26] MEDS ORDERED: Diphtheria,Pertussis(Acell),Tetanus Vaccine 0.5 ML Syringe IM ONE (00:54)
[2022-01-26 04:58] VITALS: BP 136/62; PULSE 82
== END 2022-01-26 04:02 | disposition home or self-care (01) ==
LOC: DL.ED 23:18
DX: S00.83XA Contusion of other part of head, initial encounter (principal); J32.2 Chronic ethmoidal sinusitis; E66.9 Obesity, unspecified; Z88.8 Allergy status to other drugs, medicaments and biological substances; Z91.030 Bee allergy status; Z68.41 Body mass index [BMI] 40.0-44.9, adult; Z23 Encounter for immunization; Y04.0XXA Assault by unarmed brawl or fight, initial encounter
CPT/HCPCS: 36415; 70450; 72125; 80053; 80307; 83605; 83735; 84703; 85025; 86140; 90471; 90715; 96374; 96375; 99284; A9270; J2405; J3010

== ENCOUNTER 2022-12-27 11:53 | Emergency (ER) | payer MEDICARE ==
[2022-12-27 12:26] LABS: AMPHETAMINES,URINE NEGATIVE (NEGATIVE); BARBITURATES,URINE NEGATIVE (NEGATIVE); BENZODIAZEPINE,URINE NEGATIVE (NEGATIVE); MDMA (ECSTASY), URINE NEGATIVE (NEGATIVE); METHADONE,URINE NEGATIVE (NEGATIVE); METHAMPHETAMINES,URINE NEGATIVE (NEGATIVE); OPIATES,URINE NEGATIVE (NEGATIVE); OXYCODONE,URINE NEGATIVE (NEGATIVE); PHENCYCLIDINE,URINE NEGATIVE (NEGATIVE); TCA,URINE NEGATIVE (NEGATIVE)
[2022-12-27] MEDS: Sodium Chloride 0.9% 1,000 ML IV ONE (12:35)
[2022-12-27] MEDS: Sodium Chloride 0.9% 10 ML Syringe FLUSH PRN (12:35)
[2022-12-27 12:37] VITALS: BP 156/93; PULSE 66
[2022-12-27 12:41] LABS: PTT,PARTIAL THROMBOPLSTIN TIME 26.8 SEC (22.0-34.0)
[2022-12-27] MEDS: Ondansetron 4 MG/2 ML SDV IVPUSH ONE (12:41)
[2022-12-27 12:44] LABS: CHLORIDE,CL 104 mmol/L (98-107); ESTIMATED GFR 101 mL/min (>=60); SODIUM,NA 142 mmol/L (136-145)
[2022-12-27] MEDS: GI Cocktail Oral Solution 30 ML PO ONE (13:19)
[2022-12-27] MEDS: Iopamidol 612 MG/ML 100 ML Bottle IVPUSH ONE (13:51)
[2022-12-27] MEDS: traMADol 50 MG Tab PO ONE (14:58)
== END 2022-12-27 15:01 | disposition home or self-care (01) ==
LOC: DL.ED 11:53
DX: R16.0 Hepatomegaly, not elsewhere classified (principal); K76.0 Fatty (change of) liver, not elsewhere classified; F12.10 Cannabis abuse, uncomplicated; J45.909 Unspecified asthma, uncomplicated; E66.9 Obesity, unspecified; Z68.42 Body mass index [BMI] 45.0-49.9, adult; Z88.8 Allergy status to other drugs, medicaments and biological substances; Z91.030 Bee allergy status; Z79.899 Other long term (current) drug therapy
CPT/HCPCS: 36415; 74177; 80053; 80305-QW; 80307; 81001; 82150; 83605; 83690; 83735; 84484; 85025; 85610; 85730; 86140; 93005; 93010; 96361; 96374; 99284; 99284-25; A9270-GY; J2405; J3490; J7030; Q9967

== ENCOUNTER 2023-01-28 11:05 | Emergency (ER) | payer MEDICAID, MEDICARE ==
[2023-01-28 11:59] LABS: BASOPHILS PERCENT AUTO 0.6 % (0.0-1.0); EOSINOPHILS PERCENT AUTO 10.1 % (1.0-3.0); HEMATOCRIT 37.2 % (37.0-47.0); HEMOGLOBIN 11.9 g/dL (12.0-16.0); LYMPHOCYTES PERCENT AUTO 34.6 % (20.5-50.1); MEAN CORPUSCULAR HEMOGLOBIN 25.1 pg (27.0-34.0); MEAN CORPUSCULAR VOLUME 78.3 fL (80-100); MONOCYTES PERCENT AUTO 9.5 % (2-8); NEUTROPHILS PERCENT AUTO 45.2 % (42.2-75.2); PLATELET COUNT,PLT 369 10^3/uL (150-450); RED BLOOD CELL COUNT 4.75 10^6/uL (4.2-5.4); WHITE BLOOD CELL COUNT,WBC 6.5 10^3/uL (5.0-10.0)
[2023-01-28 12:22] LABS: A/G RATIO 1.1; ALANINE AMINOTRANSFERASE,ALT 26 U/L (14-59); ALBUMIN 3.7 g/dL (3.4-5.0); ALKALINE PHOSPHATASE 98 U/L (46-116); ANION GAP 10.9 mEq/L (7-13); ASPARTATE AMNIOTRANSFERASE,AST 14 U/L (15-37); BILIRUBIN TOTAL 0.3 mg/dL (0.2-1.0); BLOOD UREA NITROGEN,BUN 12 mg/dL (7-18); BUN/CREATININE RATIO 15.8 (No establ ref range); CALCIUM 8.4 mg/dL (8.5-10.1); CARBON DIOXIDE,CO2 28 mmol/L (21-32); CHLORIDE,CL 106 mmol/L (98-107); CREATININE 0.76 mg/dL (0.55-1.02); EST CRCL DRUG DOSING (CG) 79.87 mL/min; GLUCOSE RANDOM 108 mg/dL (70-99); POTASSIUM,K 3.9 mmol/L (3.5-5.1); SODIUM,NA 141 mmol/L (136-145)
[2023-01-28 12:26] LABS: ESTIMATED GFR 98 mL/min (>=60); ETHANOL BLOOD MEDICAL < 3 mg/dL (0)
[2023-01-28 13:04] VITALS: BP 159/64; PULSE 64
== END 2023-01-28 13:02 | disposition home or self-care (01) ==
LOC: DL.ED 11:05
DX: R07.89 Other chest pain (principal); Z13.6 Encounter for screening for cardiovascular disorders; F41.9 Anxiety disorder, unspecified; Z88.8 Allergy status to other drugs, medicaments and biological substances; Z91.030 Bee allergy status
CPT/HCPCS: 36415; 71045; 80053; 80307; 84484; 85025; 93005; 93010; 99283; 99284

== ENCOUNTER 2023-11-05 23:08 | Emergency (ER) | payer MEDICARE ==
[2023-11-05] MEDS: Lidocaine 1% with EPINEPHrine 1:100,000 20 ML MDV ONE (23:38)
[2023-11-05] MEDS: Silver Nitrate Applicator Each ONE (23:39)
[2023-11-05] MEDS: Silver Nitrate Applicator Each TOP ONE (23:55)
[2023-11-05 23:59] VITALS: BP 143/78; PULSE 88
== END 2023-11-06 | disposition home or self-care (01) ==
LOC: DL.ED 23:08
DX: I83.91 Asymptomatic varicose veins of right lower extremity (principal); J45.909 Unspecified asthma, uncomplicated; E66.9 Obesity, unspecified; Z68.39 Body mass index [BMI] 39.0-39.9, adult; Z79.51 Long term (current) use of inhaled steroids; Z88.6 Allergy status to analgesic agent; Z91.030 Bee allergy status; Z86.19 Personal history of other infectious and parasitic diseases; Z90.49 Acquired absence of other specified parts of digestive tract; Z79.899 Other long term (current) drug therapy
CPT/HCPCS: 99284; J3490

== ENCOUNTER 2024-09-24 08:21 | Emergency (ER) | payer MEDICARE ==
[2024-09-24] MEDS ORDERED: Sodium Chloride 0.9% 10 ML Syringe FLUSH PRN (08:32)
[2024-09-24 08:51] LABS: BASOPHILS PERCENT AUTO 0.2 % (0.0-1.0); EOSINOPHILS PERCENT AUTO 1.9 % (1.0-3.0); HEMATOCRIT 42.9 % (37.0-47.0); HEMOGLOBIN 13.9 g/dL (12.0-16.0); LYMPHOCYTES PERCENT AUTO 11.5 % (20.5-50.1); MEAN CORPUSCULAR HEMOGLOBIN 27.4 pg (27.0-34.0); MEAN CORPUSCULAR HGB CONC 32.4 g/dL (33.0-35.0); MEAN CORPUSCULAR VOLUME 84.6 fL (80-100); MONOCYTES PERCENT AUTO 8.4 % (2-8); PLATELET COUNT,PLT 351 10^3/uL (150-450); RED BLOOD CELL COUNT 5.07 10^6/uL (4.2-5.4); WHITE BLOOD CELL COUNT,WBC 14.3 10^3/uL (5.0-10.0)
[2024-09-24 08:53] LABS: APPEARANCE,URINE SLIGHTLY CLOUDY (CLEAR); BILIRUBIN,URINE NEGATIVE (NEGATIVE); GLUCOSE,URINE NEGATIVE (NEGATIVE); KETONES,URINE NEGATIVE (NEGATIVE); LEUKOCYTE ESTERASE,URINE LARGE (NEGATIVE); NITRITE,URINE NEGATIVE (NEGATIVE); OCCULT BLOOD,URINE LARGE (NEGATIVE); PROTEIN,URINE NEGATIVE (NEGATIVE); UROBILINOGEN,URINE 0.2 mg/dL (0.2-1.0)
[2024-09-24 08:55] LABS: COLOR,URINE LIGHT YELLOW (YELLOW)
[2024-09-24 09:11] LABS: A/G RATIO 0.9; ALANINE AMINOTRANSFERASE,ALT 23 U/L (14-59); ALBUMIN 3.5 g/dL (3.4-5.0); ALKALINE PHOSPHATASE 114 U/L (46-116); ANION GAP 10.8 mEq/L (7-13); ASPARTATE AMNIOTRANSFERASE,AST 11 U/L (15-37); BILIRUBIN TOTAL 0.5 mg/dL (0.2-1.0); BLOOD UREA NITROGEN,BUN 9 mg/dL (7-18); BUN/CREATININE RATIO 14.1 (No establ ref range); CARBON DIOXIDE,CO2 28 mmol/L (21-32); CHLORIDE,CL 105 mmol/L (98-107); CREATININE 0.64 mg/dL (0.55-1.02); GLUCOSE RANDOM 114 mg/dL (70-99); LIPASE 12 U/L (16-77); MAGNESIUM 1.9 mg/dL (1.8-2.4); POTASSIUM,K 3.8 mmol/L (3.5-5.1); PROTEIN TOTAL,TP 7.3 g/dL (6.4-8.2); SODIUM,NA 140 mmol/L (136-145)
[2024-09-24 09:12] LABS: ESTIMATED GFR 110 mL/min (>=60)
[2024-09-24] MEDS ORDERED: cefTRIAXone 1 GM Vial IVPUSH ONE (09:23)
[2024-09-24 09:25] LABS: BACTERIA,URINE MODERATE /HPF (0-FEW/HPF); EPITHELIAL CELLS,URINE FEW /HPF (NOT SEEN); MUCUS,URINE OCCASIONAL /LPF (NOT SEEN); WBC,URINE 40-50 /HPF (0-5/HPF)
[2024-09-24] MEDS: cefTRIAXone 1 GM Vial IM ONE (09:37)
[2024-09-24] MEDS: Lidocaine 1% 5 ML VIAL INJECT ONE (09:37)
[2024-09-24] MEDS: Ketorolac 30 MG/ML SDV IVPUSH ONE (09:38)
[2024-09-24 09:39] LABS: HCG QUALITATIVE,SERUM NEGATIVE (NEGATIVE)
[2024-09-24 09:49] VITALS: BP 155/94; PULSE 61
== END 2024-09-24 10:13 | disposition home or self-care (01) ==
LOC: DL.ED 08:21
DX: N39.0 Urinary tract infection, site not specified (principal); I10 Essential (primary) hypertension; J45.909 Unspecified asthma, uncomplicated; E66.9 Obesity, unspecified; Z90.49 Acquired absence of other specified parts of digestive tract; Z96.649 Presence of unspecified artificial hip joint; Z96.659 Presence of unspecified artificial knee joint; Z88.6 Allergy status to analgesic agent; Z91.030 Bee allergy status; Z79.51 Long term (current) use of inhaled steroids; Z79.899 Other long term (current) drug therapy
CPT/HCPCS: 36415; 74019; 80053; 81001; 83690; 83735; 84703; 85025; 87086; 87088; 87186; 96372; 96374; 99283; 99284; J0696; J1885; J3490

== ENCOUNTER 2025-01-30 12:15 | Emergency (ER) | payer MEDICARE ==
[2025-01-30] MEDS: Lidocaine 1% with EPINEPHrine 1:100,000 20 ML MDV INJECT ONE (11:18)
[2025-01-30 12:10] VITALS: BP 167/87; PULSE 69
== END 2025-01-30 12:29 | disposition home or self-care (01) ==
LOC: DL.ED 12:15
DX: I83.91 Asymptomatic varicose veins of right lower extremity (principal); E66.9 Obesity, unspecified; Z91.030 Bee allergy status; Z88.8 Allergy status to other drugs, medicaments and biological substances; Z79.899 Other long term (current) drug therapy; Z90.49 Acquired absence of other specified parts of digestive tract; Z68.37 Body mass index [BMI] 37.0-37.9, adult
CPT/HCPCS: 99283; J2004